=== PATIENT | male | born 1980 | race African-American/Black ===

== ENCOUNTER 2022-07-04 14:03 | Inpatient (IN) ==
[2022-07-04] MEDS ORDERED: MoRPHine SULFATE 4 MG/ML 1 ML CARP\\VIAL IV STA (14:35)
[2022-07-04] MEDS ORDERED: ONDANSETRON INJ 2 MG/ML 2 ML VIAL IV STA (14:35)
[2022-07-04] MEDS ORDERED: SODIUM CHLORIDE 0.9% 1000ML 1,000 ML IV ONE ×2 (14:35→15:16)
--- NOTE | 2022-07-04 14:58 | XRay Report ---
XR chest 1V portable HISTORY: 42 years-old Male Chest pain, nonspecific acute chest pain COMPARISON: None TECHNIQUE: AP view of the chest FINDINGS: Cardiomediastinal and hilar silhouettes are within normal limits. No pneumothorax, pleural effusion, airspace consolidation or pulmonary edema. Bones appear grossly intact. IMPRESSION: No acute process. ACT 112: Negative or not required by law. The above report was generated using voice recognition software. It may contain grammatical, syntax o r spelling errors. Electronically signed by: Hank Iverson M.D. 07/04/2022 2:56 PM
[2022-07-04] MEDS ORDERED: fentaNYL citrate PF 100 MCG/2 ML VIAL IV STA (15:12)
[2022-07-04] MEDS ORDERED: PROCHLORPERAZINE 2 ML IV ONE (15:16)
[2022-07-04] MEDS ORDERED: diphenhydrAMINE 50 MG/ML VIAL IV STA (15:16)
--- NOTE | 2022-07-04 15:16 | Emergency Department Note ---
Impression & Plan Intractable nausea and vomiting, Chest pain, Abdominal pain, acute, epigastric, Elevated lactic acid level ED Provider Note HISTORY OF PRESENT ILLNESS: Patient is a 42-year-old male presenting with chest pain and vomiting. 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 His provides history and reports that the patient was having episodes of nausea and vomiting yesterday and then developed chest pain today. Patient has a history of PEs and is on Eliquis daily. Locates the pain to the substernal region without radiation. Denies any significant shortness of breath. Denies any dysuria or hematuria. ROS: as above PHYSICAL EXAM: Constitutional: Patient appears in mild distress. Patient is actively vomiting on assessment. HENT: Head: Normocephalic and atraumatic. Eyes: EOMI, PERRL Mouth/Throat: Mucous membranes moist. Neck: Trachea midline. Neck supple. Cardiovascular: RRR, No murmurs, rubs or gallops. Intact distal pulses. Pulmonary/Chest: No respiratory distress. Breath sounds clear and equal bilaterally. No wheezes or rales. Abdominal: BS +. Abdomen soft, no rebound or guarding. Epigastric TTP. Musculoskeletal: No edema, tenderness or deformity noted. Skin: Warm and dry. No rash, erythema, pallor or cyanosis Psychiatric: Appropriate mood and affect for situation. Neurological: Alert and keenly responsive. CN II-XII grossly intact, moving all extremities equally and fully. MDM: - Vitals signs showed hypertension and bradycardia. - History obtained via patient and patient's family member. Patient presents with chest pain and vomiting. provides history given patient's active retching. Patient has been having nausea and vomiting since yesterday and then developed chest pain today. Locates the pain to the substernal region. Has a history of PEs and is on Eliquis. Locates the pain to the substernal and epigastric region. Denies any dysuria or hematuria. - Chronic conditions affecting care: Pulmonary embolism on Eliquis - Differential diagnoses include, but are not limited to: pancreatitis; ACS; pulmonary embolism; pneumonia - Order placed for continuous cardiac monitoring. At this time, monitor showed rate of 59 bpm with normal sinus rhythm, per my interpretation. - External medical records reviewed. EMS run sheet reviewed. Patient given 324 mg of aspirin and 3 nitro prior to arrival with EMS. - EKG reviewed by myself showed normal sinus rhythm. Rate 75 bpm. QTc 428. No acute ischemic changes, though poor baseline. Noted to have PVCs. - Laboratory workup interpreted by myself showed leukocytosis (WBC 11.73 - likely reactive from all the vomiting); stable electrolytes; normal troponin; elevated lactate (4.0); normal lipase - COVID/flu/RSV negative - Patient given 1L NS, 4 mg IV morphine and 4 mg IV zofran on arrival. On reassessment, he is still complaining of pain and actively vomiting. Given 50 mcg IV fentanyl, 1L NS, 10 mg IV compazine and 50 mg IV benadryl. - Patient reassessed and was feeling improved, but then complained of chest pain and started vomiting again. Given 0.4 mg PO SL nitro with improvement of pain. - UA negative for infection. Noted to have trace ketones, likely from dehydration from vomiting. - CXR negative for acute cardiopulmonary pathology. - CT abdomen/pelvis with IV contrast showed bladder wall thickening concerning for UTI. Noted to have chronic pancreatitis findings. Gallbladder unremarkable. - Patient reports that he has smoked marijuana in the past but nothing within the last 3 weeks. - Discussion was had with social work assistant about patient's case and need for admis edin. - Hospitalist, Dr. Calixto, consulted for admission. - Patient admitted to [facility] Hospitalist service for further evaluation and management. ASSESSMENT AND PLAN: Diagnosis: intractable nausea and vomiting; elevated lactic acid level; epigastric abdominal pain; chest pain Plan: admit Allergies Allergies Allergy/AdvReac Type Severity Reaction Status Date / Time amoxicillin Allergy Intermediate Hives Unverified 07/04/22 15:57 Home Meds Home Medications Medication Instructions Recorded Confirmed apixaban 5 mg tablet (Eliquis) 5 mg PO BID 07/04/22 07/04/22 nifedipine 30 mg tablet,extended 30 mg PO DAILY 07/04/22 07/04/22 release 24 hr ondansetron 4 mg disintegrating 4 mg PO TID PRN Nausea 07/04/22 07/04/22 tablet pantoprazole 40 mg tablet,delayed 40 mg PO DAILY 07/04/22 07/04/22 release Results & Data (ED) Vital Signs Vital Signs - 24 hr 07/04/22 14:19 07/04/22 14:24 07/04/22 15:13 Temperature 36.8 C Temperature Source Oral Pulse Rate 64 58 L Pulse Rate [Right Finger] 68 Pulse Rhythm [Right Finger] Regular Pulse Strength Normal Pulse Strength [Right Finger] Normal Respiratory Rate 20 22 Respiratory Effort / Characteristics Non-Labored Non-Labored Spontaneous Respiratory Depth Normal Normal Respiratory Pattern Regular Blood Pressure 171/96 H Blood Pressure [Right Arm] 175/78 H Blood Pressure Mean 121 Blood Pressure Mean [Right Arm] 110 Blood Pressure Position Sitting Blood Pressure Position [Right Arm] Lying Pulse Oximetry 94 97 Oxygen Delivery Method Room Air Room Air Sepsis Recent Fever Within 48 Hours No Sepsis New/Unexplained Change in Mental Status No Sepsis Action Taken by Nursing No Action Required 07/04/22 18:40 07/04/22 18:52 Temperature Temperature Source Pulse Rate 70 Pulse Rate [Right Finger] 89 Pulse Rhythm [Right Finger] Regular Pulse Strength Pulse Strength [Right Finger] Normal Respiratory Rate 19 Respiratory Effort / Characteristics Non-Labored Spontaneous Respiratory Depth Normal Respiratory Pattern Regular Blood Pressure Blood Pressure [Right Arm] 169/108 H Blood Pressure Mean Blood Pressure Mean [Right Arm] 128 Blood Pressure Position Blood Pressure Position [Right Arm] Lying Pulse Oximetry 99 Oxygen Delivery Method Room Air Sepsis Recent Fever Within 48 Hours Sepsis New/Unexplained Change in Mental Status Sepsis Action Taken by Nursing Laboratory Data 07/04/22 14:15 07/04/22 14:15 Lab Results 07/04/22 07/04/22 07/04/22 Range/Units 14:15 14:15 14:15 WBC 11.73 H (4.8-10.8) K/ul RBC 5.20 (4.70-6.10) M/uL Hgb 13.2 L (14.0-18.0) g/dl Hct 40.3 L (42.0-52.0) % MCV 77.5 L (80.0-100.0) fL MCH 25.4 (25.0-34.0) pg MCHC 32.8 (32.0-36.0) g/dL RDW Std Deviation 39.6 (36.4-46.3) fL RDW Coeff of Argenis 14.3 (11.5-14.5) % Plt Count 270 (130-400) K/uL MPV 11.0 (9.4-12.4) fL Immature Gran % (Auto) 0.3 % Neut % (Auto) 90.2 % Lymph % (Auto) 6.0 % [place] % (Auto) 3.4 % Eos % (Auto) 0.0 % Baso % (Auto) 0.1 % Neut # (Auto) 10.59 H (1.40-6.50) K/uL Lymph # (Auto) 0.70 L (1.2-3.4) K/uL [place] # (Auto) 0.40 (0.11-0.59) K/uL Eos # (Auto) 0.00 (0-0.50) K/uL Baso # (Auto) 0.01 (0-0.2) K/uL Immature Gran # (Auto) 0.03 (0.01-0.20) K/uL PT 10.4 (9.0-12.0) Seconds INR 1.0 (0.9-1.1) Sodium 142 (136-145) mmol/L Potassium 3.8 (3.5-5.1) mmol/L Chloride 106 (98-107) mmol/L Carbon Dioxide 25 (21-32) mmol/L Anion Gap 11 (3-11) BUN 10 (6-23) mg/dl Creatinine 1.04 (0.6-1.4) mg/dl Est Cr Clr Drug Dosing 130.0 ml/min Est GFR ( Amer) 103.6 ml/min Est GFR (Non-Af Amer) 89.4 ml/min BUN/Creatinine Ratio 9.6 L (10-20) Glucose 185 H (70-99(Fasting)) mg/dl Lactate (0.4-2.0) mmol/L Calcium 9.8 (8.5-10.1) mg/dl Total Bilirubin 0.9 (0.2-1.0) mg/dl AST 19 (13-39) U/L ALT 22 (7-52) U/L Alkaline Phosphatase 130 H (34-104) U/L Troponin I High Sens 11.4 (0-20) pg/ml Total Protein 8.3 (6.0-8.3) gm/dl Albumin 4.7 (3.4-5.0) gm/dl Globulin 3.6 (2.5-4.0) gm/dl Albumin/Globulin Ratio 1.3 (0.9-2) Lipase 27 (11-82) U/L Urine Color Urine Appearance (Clear) Urine pH (4.5-7.5) Ur Specific [place] (1.000-1.030) Urine Protein (Negative) Urine Glucose (UA) (Negative) Urine Ketones (Negative) Urine Blood (Negative) Urine Nitrite (Negative) Urine Bilirubin (Negative) Urine Urobilinogen (Negative) Ur Leukocyte Esterase (Negative) Urine WBC (Auto) (0-5) /hpf Urine RBC (Auto) (0-4) /hpf U Hyaline Cast (Auto) (0-5) /lpf U Epithel Cells (Auto) (0-5) /lpf Urine Bacteria (Auto) (Negative) Ur Renal Epithelial Cell Urine Mucus (None Prsent) SARS-CoV-2 (PCR) (Negative) Influenza Type A (PCR) (Neg) Influenza Type B (PCR) (Neg) RSV (RT-PCR) (Neg) 07/04/22 07/04/22 07/04/22 Range/Units 15:25 15:40 17:18 WBC (4.8-10.8) K/ul RBC (4.70-6.10) M/uL Hgb (14.0-18.0) g/dl Hct (42.0-52.0) % MCV (80.0-100.0) fL MCH (25.0-34.0) pg MCHC (32.0-36.0) g/dL RDW Std Deviation (36.4-46.3) fL RDW Coeff of Argenis (11.5-14.5) % Plt Count (130-400) K/uL MPV (9.4-12.4) fL Immature Gran % (Auto) % Neut % (Auto) % Lymph % (Auto) % [place] % (Auto) % Eos % (Auto) % Baso % (Auto) % Neut # (Auto) (1.40-6.50) K/uL Lymph # (Auto) (1.2-3.4) K/uL [place] # (Auto) (0.11-0.59) K/uL Eos # (Auto) (0-0.50) K/uL Baso # (Auto) (0-0.2) K/uL Immature Gran # (Auto) (0.01-0.20) K/uL PT (9.0-12.0) Seconds INR (0.9-1.1) Sodium (136-145) mmol/L Potassium (3.5-5.1) mmol/L Chloride (98-107) mmol/L Carbon Dioxide (21-32) mmol/L Anion Gap (3-11) BUN (6-23) mg/dl Creatinine (0.6-1.4) mg/dl Est Cr Clr Drug Dosing ml/min Est GFR ( Amer) ml/min Est GFR (Non-Af Amer) ml/min BUN/Creatinine Ratio (10-20) Glucose (70-99(Fasting)) mg/dl Lactate 4.0 H* 4.0 H* (0.4-2.0) mmol/L Calcium (8.5-10.1) mg/dl Total Bilirubin (0.2-1.0) mg/dl AST (13-39) U/L ALT (7-52) U/L Alkaline Phosphatase (34-104) U/L Troponin I High Sens (0-20) pg/ml Total Protein (6.0-8.3) gm/dl Albumin (3.4-5.0) gm/dl Globulin (2.5-4.0) gm/dl Albumin/Globulin Ratio (0.9-2) Lipase (11-82) U/L Urine Color Urine Appearance (Clear) Urine pH (4.5-7.5) Ur Specific [place] (1.000-1.030) Urine Protein (Negative) Urine Glucose (UA) (Negative) Urine Ketones (Negative) Urine Blood (Negative) Urine Nitrite (Negative) Urine Bilirubin (Negative) Urine Urobilinogen (Negative) Ur Leukocyte Esterase (Negative) Urine WBC (Auto) (0-5) /hpf Urine RBC (Auto) (0-4) /hpf U Hyaline Cast (Auto) (0-5) /lpf U Epithel Cells (Auto) (0-5) /lpf Urine Bacteria (Auto) (Negative) Ur Renal Epithelial Cell Urine Mucus (None Prsent) SARS-CoV-2 (PCR) NEGATIVE (Negative) Influenza Type A (PCR) Negative (Neg) Influenza Type B (PCR) Negative (Neg) RSV (RT-PCR) Negative (Neg) 07/04/22 Range/Units 17:25 WBC (4.8-10.8) K/ul RBC (4.70-6.10) M/uL Hgb (14.0-18.0) g/dl Hct (42.0-52.0) % MCV (80.0-100.0) fL MCH (25.0-34.0) pg MCHC (32.0-36.0) g/dL RDW Std Deviation (36.4-46.3) fL RDW Coeff of Argenis (11.5-14.5) % Plt Count (130-400) K/uL MPV (9.4-12.4) fL Immature Gran % (Auto) % Neut % (Auto) % Lymph % (Auto) % [place] % (Auto) % Eos % (Auto) % Baso % (Auto) % Neut # (Auto) (1.40-6.50) K/uL Lymph # (Auto) (1.2-3.4) K/uL [place] # (Auto) (0.11-0.59) K/uL Eos # (Auto) (0-0.50) K/uL Baso # (Auto) (0-0.2) K/uL Immature Gran # (Auto) (0.01-0.20) K/uL PT (9.0-12.0) Seconds INR (0.9-1.1) Sodium (136-145) mmol/L Potassium (3.5-5.1) mmol/L Chloride (98-107) mmol/L Carbon Dioxide (21-32) mmol/L Anion Gap (3-11) BUN (6-23) mg/dl Creatinine (0.6-1.4) mg/dl Est Cr Clr Drug Dosing ml/min Est GFR ( Amer) ml/min Est GFR (Non-Af Amer) ml/min BUN/Creatinine Ratio (10-20) Glucose (70-99(Fasting)) mg/dl Lactate (0.4-2.0) mmol/L Calcium (8.5-10.1) mg/dl Total Bilirubin (0.2-1.0) mg/dl AST (13-39) U/L ALT (7-52) U/L Alkaline Phosphatase (34-104) U/L Troponin I High Sens (0-20) pg/ml Total Protein (6.0-8.3) gm/dl Albumin (3.4-5.0) gm/dl Globulin (2.5-4.0) gm/dl Albumin/Globulin Ratio (0.9-2) Lipase (11-82) U/L Urine Color Yellow Urine Appearance Clear (Clear) Urine pH 6.0 (4.5-7.5) Ur Specific [place] 1.030 (1.000-1.030) Urine Protein 1+ H (Negative) Urine Glucose (UA) Trace H (Negative) Urine Ketones Trace H (Negative) Urine Blood Negative (Negative) Urine Nitrite Negative (Negative) Urine Bilirubin Negative (Negative) Urine Urobilinogen Negative (Negative) Ur Leukocyte Esterase Negative (Negative) Urine WBC (Auto) 1-5 (0-5) /hpf Urine RBC (Auto) 5-10 H (0-4) /hpf U Hyaline Cast (Auto) 5-10 H (0-5) /lpf U Epithel Cells (Auto) >30 H (0-5) /lpf Urine Bacteria (Auto) Negative (Negative) Ur Renal Epithelial Cell Not Reportable Urine Mucus Present A (None Prsent) SARS-CoV-2 (PCR) (Negative) Influenza Type A (PCR) (Neg) Influenza Type B (PCR) (Neg) RSV (RT-PCR) (Neg) Administered Medications Discontinued Medications Diphenhydramine HCl (Diphenhydramine 50 Mg/Ml Vial) 50 mg IV NOW STA Stop: 07/04/22 15:17 Last Admin: 07/04/22 15:35 Dose: 50 mg Documented By: RAMILA Fentanyl Citrate (Fentanyl Citrate 100 Mcg/2 Ml Vial) 50 mcg IV NOW STA Stop: 07/04/22 15:13 Last Admin: 07/04/22 15:19 Dose: 50 mcg Documented By: JOLLY Sodium Chloride (Nss 1000ml) 1,000 mls @ 999 mls/hr IV .Q1H1M ONE Stop: 07/04/22 15:35 Last Infusion: 07/04/22 16:21 Dose: 0 mls/hr Documented By: Admin: 07/04/22 14:50 Dose: 999 mls/hr Documented By: HARLAN Prochlorperazine (Compazine) 2 mls @ 1 mls/min IV ONE ONE Stop: 07/04/22 15:17 Last Admin: 07/04/22 15:26 Dose: 1 mls/min Documented By: JOLLY Sodium Chloride (Nss 1000ml) 1,000 mls @ 999 mls/hr IV .Q1H1M ONE Stop: 07/04/22 16:16 Last Infusion: 07/04/22 17:11 Dose: 0 mls/hr Documented By: Admin: 07/04/22 15:35 Dose: 999 mls/hr Documented By: RAMILA Ioversol (Optiray 350 100ml) 90 ml IV ONCE ONE Stop: 07/04/22 18:04 Last Admin: 07/04/22 18:03 Dose: 90 ml Documented By: MARK Morphine Sulfate (Morphine Sulfate 4 Mg/Ml 1 Ml Carp\Vial) 4 mg IV NOW STA Stop: 07/04/22 14:36 Last Admin: 07/04/22 14:50 Dose: 4 mg Documented By: HARLAN Nitroglycerin (Nitroglycerin Sl 0.4 Mg/Tab Tab) Confirm Administered Dose 0.4 mg .ROUTE .STK-MED ONE Stop: 07/04/22 17:37 Last Admin: 07/04/22 17:49 Dose: Not Given Documented By: JOLLY Nitroglycerin (Nitroglycerin Sl 0.4 Mg/Tab Tab) 0.4 mg SL NOW STA Stop: 07/04/22 17:40 Last Admin: 07/04/22 17:48 Dose: 0.4 mg Documented By: JOLLY Ondansetron HCl (Ondansetron Inj 2 Mg/Ml 2 Ml Vial) 4 mg IV NOW STA Stop: 07/04/22 14:36 Last Admin: 07/04/22 14:47 Dose: 4 mg Documented By: HARLAN Imaging Data Radiologist's Impression: Chest X-Ray 07/04/22 14:36 XR chest 1V portable HISTORY: 42 years-old Male Chest pain, nonspecific acute chest pain COMPARISON: None TECHNIQUE: AP view of the chest FINDINGS: Cardiomediastinal and hilar silhouettes are within normal limits. No pneumothorax, pleural effusion, airspace consolidation or pulmonary edema. Bones appear grossly intact. IMPRESSION: No acute process. ACT 112: Negative or not required by law. The above report was generated using voice recognition software. It may contain grammatical, syntax or spelling errors. Electronically signed by: Hank Iverson M.D. 07/04/2022 2:56 PM Abdomen/Pelvis CT 07/04/22 17:39 CT SCAN OF THE ABDOMEN AND PELVIS WITH IV CONTRAST CLINICAL HISTORY: Epigastric abdominal pain COMPARISON STUDY: No priors. TECHNIQUE: Following the IV administration of 90 cc of Optiray 350, CT scan of the abdomen and pelvis is performed from the lung bases to the proximal femora. Images are reviewed in the axial, sagittal, and coronal planes. IV contrast was administered without complication. A dose lowering technique was utilized adhering to the principles of ALARA. CT DOSE: 1218.98 mGy.cm FINDINGS: Lung bases: The heart is normal in size and without pericardial effusion. The lung bases are clear. Liver: The contrast-enhanced liver is enlarged, measuring 21.9 cm in length. Attenuation is slightly diminished suggesting mild steatosis. There is no intrahepatic biliary ductal dilatation. The hepatic veins and portal veins are patent. Gallbladder: Unremarkable. Spleen: Normal in size and attenuation. Pancreas: Scattered parenchymal calcifications suggest chronic pancreatitis. No acute inflammatory change is identified. Adrenal glands: Unremarkable. Kidneys: The contrast enhanced kidneys are normal in size and without hydronephrosis. The kidneys enhance symmetrically. Abdominal vasculature: The abdominal aorta is normal in course and caliber. A stent is present in the left iliac vein. The vessel appears patent. Bowel: There is no bowel obstruction. The appendix is well-visualized and normal. Peritoneum: There is no intraperitoneal free air or abdominal ascites. There is a fat-containing umbilical hernia. Lymphadenopathy: None. Pelvic viscera: The bladder is decompressed and appears circumferentially thick walled. The prostate and seminal vesicles unremarkable as visualized. Skeletal structures: No lytic or blastic lesions are seen. IMPRESSION: 1. The bladder wall appears circumferentially thickened. Correlate with clinical findings and urinalysis. 2. There are scattered pancreatic parenchymal calcifications, suggestive of chronic pancreatitis. There is no evidence of acute inflammation. Clinical and laboratory correlation will be required. 3. The liver is enlarged and mildly steatotic. 4. Additional findings as above. ACT 112: Negative or not required by law. Electronically signed by: Moises Strickland M.D. 07/04/2022 6:12 PM Discharge Plan Visit Data Chief Complaint: Chest Pain ED Provider: Nancy Rodriguez Discharge Problem: Intractable nausea and vomiting, Chest pain, Abdominal pain, acute, epigastric, Elevated lactic acid level Forms Stand Alone Forms: [facility] Prescriptions Prescriptions: No Action nifedipine 30 mg tablet extended release 24hr 30 mg PO DAILY pantoprazole 40 mg tablet,delayed release (DR/EC) 40 mg PO DAILY ondansetron 4 mg tablet,disintegrating 4 mg PO TID PRN (Reason: Nausea) Eliquis 5 mg tablet 5 mg PO BID Referrals Referrals: PCP,NO [Primary Care Provider] -
[2022-07-04 15:24] LABS: Hematocrit (blood only) 40.3 % (42.0-52.0); Hemoglobin 13.2 g/dl (14.0-18.0); Mean Corpuscular Hemoglobin 25.4 pg (25.0-34.0); Mean Corpuscular Hgb Conc 32.8 g/dL (32.0-36.0); Mean Corpuscular Volume 77.5 fL (80.0-100.0); Platelet Count 270 K/uL (130-400); RDW Coefficient of Variation 14.3 % (11.5-14.5); RDW Standard Deviation 39.6 fL (36.4-46.3); White Blood Count 11.73 K/ul (4.8-10.8)
[2022-07-04 15:40] LABS: Basophils # (auto) 0.01 K/uL (0-0.2); Basophils % (auto) 0.1 %; Immature Granulocytes # (auto) 0.03 K/uL (0.01-0.20); Immature Granulocytes % (auto) 0.3 %; Monocytes % (auto) 3.4 %; Neutrophils # (auto) 10.59 K/uL (1.40-6.50); Neutrophils % (auto) 90.2 %
[2022-07-04 15:46] LABS: Albumin Level 4.7 gm/dl (3.4-5.0); Bilirubin,Total 0.9 mg/dl (0.2-1.0); Calcium 9.8 mg/dl (8.5-10.1); Potassium 3.8 mmol/L (3.5-5.1)
--- NOTE | 2022-07-04 15:50 | Electrocardiogram Report ---
Test Reason : Blood Pressure : / mmHG Vent. Rate : 075 BPM Atrial Rate : 075 BPM P-R Int : 164 ms QRS Dur : 094 ms QT Int : 384 ms P-R-T Axes : 084 084 048 degrees QTc Int : 428 ms Poor data quality, interpretation may be adversely affected Sinus rhythm with marked sinus arrhythmia with occasional Premature ventricular complexes Nonspecific T wave abnormality Inferior leads Abnormal ECG No previous ECGs available Confirmed by Paras Brody ([id number]) on 07/04/2022 3:50:31 PM Referred By: Confirmed By:Paras Brody
[2022-07-04 15:52] LABS: Albumin Globulin Ratio 1.3 (0.9-2); BUN Creatinine Ratio 9.6 (10-20); Est GFR (African American) 103.6 ml/min; Est GFR (Non-African American) 89.4 ml/min; Globulin 3.6 gm/dl (2.5-4.0); Total Protein 8.3 gm/dl (6.0-8.3)
[2022-07-04 15:53] LABS: Prothrombin Time 10.4 Seconds (9.0-12.0)
[2022-07-04 15:54] LABS: Troponin I High Sensitivity 11.4 pg/ml (0-20)
[2022-07-04 16:41] LABS: Influenza A virus by PCR Negative (Neg); Influenza B virus by PCR Negative (Neg); RSV by PCR Negative (Neg); SARS CoV2 RNA(COVID-19) Ceph NEGATIVE (Negative)
[2022-07-04] MEDS ORDERED: NITROGLYCERIN SL 0.4 MG/TAB TAB ONE (17:36)
[2022-07-04] MEDS ORDERED: NITROGLYCERIN SL 0.4 MG/TAB TAB SL STA (17:39)
[2022-07-04 17:56] LABS: Appearance Urine Clear (Clear); Bacteria Urine Automated Negative (Negative); Bilirubin Urine Negative (Negative); Blood Urine Negative (Negative); Color Urine Yellow; Epithelial Cell Urine Auto >30 /lpf (0-5); Glucose Urine UA Trace (Negative); Ketones Urine Trace (Negative); Leukocyte Esterase Urine Negative (Negative); Nitrite Urine Negative (Negative); Protein Urine 1+ (Negative); Urobilinogen Urine Negative (Negative)
[2022-07-04] MEDS ORDERED: OPTIRAY 350 100ml IV ONE (18:03)
--- NOTE | 2022-07-04 18:14 | CT Scan Report ---
CT SCAN OF THE ABDOMEN AND PELVIS WITH IV CONTRAST CLINICAL HISTORY: Epigastric abdominal pain COMPARISON STUDY: No priors. TECHNIQUE: Following the IV administration of 90 cc of Optiray 350, CT scan of the abdomen and pelvi s is performed from the lung bases to the proximal femora. Images are reviewed in the axial, sagittal , and coronal planes. IV contrast was administered without complication. A dose lowering technique wa s utilized adhering to the principles of ALARA. CT DOSE: 1218.98 mGy.cm FINDINGS: Lung bases: The heart is normal in size and without pericardial effusion. The lung bases are clear. Liver: The contrast-enhanced liver is enlarged, measuring 21.9 cm in length. Attenuation is slightly diminished suggesting mild steatosis. There is no intrahepatic biliary ductal dilatation. The hepatic veins and portal veins are patent. Gallbladder: Unremarkable. Spleen: Normal in size and attenuation. Pancreas: Scattered parenchymal calcifications suggest chronic pancreatitis. No acute inflammatory ch pete is identified. Adrenal glands: Unremarkable. Kidneys: The contrast enhanced kidneys are normal in size and without hydronephrosis. The kidneys enh ance symmetrically. Abdominal vasculature: The abdominal aorta is normal in course and caliber. A stent is present in the left iliac vein. The vessel appears patent. Bowel: There is no bowel obstruction. The appendix is well-visualized and normal. Peritoneum: There is no intraperitoneal free air or abdominal ascites. There is a fat-containing umbi lical hernia. Lymphadenopathy: None. Pelvic viscera: The bladder is decompressed and appears circumferentially thick walled. The prostate and seminal vesicles unremarkable as visualized. Skeletal structures: No lytic or blastic lesions are seen. IMPRESSION: 1. The bladder wall appears circumferentially thickened. Correlate with clinical findings and urinaly sis. 2. There are scattered pancreatic parenchymal calcifications, suggestive of chronic pancreatitis. The re is no evidence of acute inflammation. Clinical and laboratory correlation will be required. 3. The liver is enlarged and mildly steatotic. 4. Additional findings as above. ACT 112: Negative or not required by law. Electronically signed by: Moises Strickland M.D. 07/04/2022 6:12 PM
[2022-07-04 18:15] LABS: Mucus Urine Present (None Prsent)
--- NOTE | 2022-07-04 22:45 | History and Physical Report ---
DATE OF ADMISSION: 07/04/2022 CHIEF COMPLAINT: Chest pain. HISTORY OF PRESENT ILLNESS: A 42-year-old male unassigned patinet. 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 He lives in [place], comes because of nausea and vomiting going on since yesterday and also developed chest pain in the middle of the chest, about 8_/10 in severity associated with some nausea as well as sweating. Denies any shortness of breath. No fevers, no headache, no dizziness. He says he has blurred vision in the mornings when he wakes up. Denies any earache, no runny nose, no sore throat, no cough, no abdominal pain. He says he is getting on and off blood in the stools. He has seen by GI and had colonoscopy and some polyps were taken out and he is supposed to follow up with GI again. Normal bladder movements. No swelling in the legs. The patient was diagnosed with history of DVT and PE 6 months ago, on Eliquis. At that time he was diagnosed with HTN. He has appointment with hem/onc to decide whether to continue the Eliquis or not. He is a warp trucker and he thinks it mostly happened because he is sitting all the time on the truck. Right now, he is trying to walk and use compression stockings while driving. Currently, resting comfortably and hemodynamically stable. ALLERGIES: AMOXICILLIN. PAST MEDICAL HISTORY: Hypertension, PE, GERD. PAST SURGICAL HISTORY: Colonoscopy. MEDICATIONS: Eliquis 5 mg p.o. b.i.d., nifedipine 30 mg p.o. daily, Zofran 4 mg p.o. t.i.d. p.r.n. nausea, Protonix 40 mg p.o. daily. FAMILY HISTORY: Mother, diabetes. Father has hypertension. Maternal grandmother had CHF. SOCIAL HISTORY: Smokes 2-4 cigarettes daily. Smokes marijuana, last smoked about 15 days ago. Denies alcohol. REVIEW OF SYSTEMS: As per HPI. Rest of review of systems is negative. PHYSICAL EXAMINATION: GENERAL: The patient is obese, not in acute distress. VITAL SIGNS: Temperature 36.8, pulse 86, respiratory rate 18, blood pressure 150/103, oxygen 96% on room air. HEENT: Pupils equal, round and reactive to light. Oral mucosa moist. NECK: No JVD. No neck masses. CARDIOVASCULAR: S1 and S2 heard. Regular rate and rhythm. No murmur, no gallop. RESPIRATORY SYSTEM: Normal AP diameter. No accessory muscle use. No wheezing, crackles. ABDOMEN: Soft, bowel sounds present, nontender, no distention. CENTRAL NERVOUS SYSTEM: Alert and oriented. Speech is clear. No facial droop. Obeys simple commands. Moves extremities. EXTREMITIES: No edema, no erythema. LABORATORY DATA: WBC 11.7, hemoglobin 13.2, hematocrit 40.3, platelets 270. Sodium 142, potassium 3.8, chloride 106, bicarbonate 25, BUN 10, creatinine 1.04, serum glucose 185. Lactate 4.4, calcium 9.8, total bilirubin 0.9, AST 19, ALT 22, alkaline phosphatase 130. Troponin I high sensitivity 1.4, lipase 27. Urinalysis, +1 protein. SARS-CoV-2 PCR negative. Influenza A and B PCR negative. RSV PCR negative. IMAGING DATA: CT abdomen and pelvis with IV contrast: Bladder wall appears circumferentially thickened, correlate with clinical findings and urinalysis. There are scattered pancreatic calcifications suggestive of chronic pancreatitis. There is no evidence of acute inflammation. Enlarged liver and mildly steatoticChest x-ray, no acute process. EKG: Sinus rhythm with marked sinus arrhythmia with occasional PVCs at a rate of 75, nonspecific ST-T wave abnormalities. ASSESSMENT AND PLAN: This is a 42-year-old male presents with chest pain. 1. Chest pain: Rule out acute coronary syndrome. Initial workup is negative. We will do serial cardiac enzymes, echocardiogram. Repeat EKG and n.p.o. after midnight. Consult cardiology. Monitor in the tele floor. Had again chest pain in the morning didnot improved after nitro and iv morphine. Ordered CTA chest. 2. History of pulmonary embolism and deep venous thrombosis, diagnosed 6 months ago. Taking Eliquis, takes it regularly except he did not take in the morning because of nausea. 3. Nausea, vomiting. We will place him on IV Zofran p.r.n., IV fluids. We will monitor. CT abdomen and pelvis shows chronic pancreatitis. Needs follow up. 4. Elevated lactic acidosis, possibly from nausea, vomiting. We will follow the repeat levels. 5. Hypertension: On nifedipine. 6. Gastroesophageal reflux disease: On Protonix. We will place him on IV Pepcid for now. 7. Deep venous thrombosis prophylaxis: On Eliquis. DISPOSITION: Closely monitor in the med tele. PT/OT prior to discharge. Social service to help with discharge planning. Level 1 full code. Job ID: [id number] [facility]
[2022-07-04] MEDS ORDERED: ACETAMINOPHEN 325 MG TAB PO PRN (22:55)
[2022-07-04] MEDS: SODIUM CHLORIDE 0.9% 1000ML 1,000 ML IV SCH (23:29)
[2022-07-04] MEDS: APIXABAN 5 MG TABLET PO SCH (23:29)
[2022-07-04] MEDS: FAMOTIDINE 20 MG in SYRINGE 3 ML IV SCH (23:29)
[2022-07-05] MEDS: ONDANSETRON INJ 2 MG/ML 2 ML VIAL IV PRN ×3 (04:24→20:14)
[2022-07-05] MEDS: NITROGLYCERIN SL 0.4 MG/TAB TAB SL PRN ×2 (05:52→08:59)
[2022-07-05] MEDS ORDERED: MoRPHine SULFATE 4 MG/ML 1 ML CARP\\VIAL IV STA (06:14)
[2022-07-05] MEDS: PROCHLORPERAZINE 5 MG in SYRINGE 4 ML IV PRN (06:15)
[2022-07-05] MEDS ORDERED: OPTIRAY 320 500ml IV ONE (07:31)
[2022-07-05] MEDS: FAMOTIDINE 20 MG in SYRINGE 3 ML IV SCH (07:48)
[2022-07-05] MEDS: APIXABAN 5 MG TABLET PO SCH ×2 (07:49→20:14)
[2022-07-05] MEDS: ASPIRIN 81 MG ECTAB PO SCH (07:49)
[2022-07-05] MEDS: SODIUM CHLORIDE 0.9% 1000ML 1,000 ML IV SCH ×2 (07:54→18:45)
--- NOTE | 2022-07-05 07:57 | CT Scan Report ---
CT angio chest dissec wo/w con CLINICAL HISTORY: chest pain severe TECHNIQUE: Multidetector row helical CT of the chest was performed before and after injection of IV c ontrast. Coronal and sagittal reformations were obtained. Automated dose lowering techniques and/or a djustment according to patient size were utilized for this exam. CT DOSE: 1462.22 mGy.cm Comparison: Comparison is made to CT abdomen pelvis 07/04/2022 FINDINGS: Lungs and pleura: Minimal atelectasis is seen in the lower lungs. No airspace opacity is seen. There is a 4 mm nodule in the left upper lobe (series 4 image 105). Heart and pericardium: Heart size is normal. No pericardial effusion. Vessels: No aortic dissection or intramural hematoma is seen. Mediastinum and merrill: Subcentimeter lymph nodes are seen. Chest wall and lower neck: Unremarkable. Abdomen: A hiatal hernia is seen. Bones: Mild degenerative changes in the thoracic spine. IMPRESSION: 1. No acute abnormality and in particular no evidence of acute aortic injury. 2. 4 mm nodule in the left upper lobe. According to Fleischner criteria, no follow-up is required in low risk patients, in high-risk patients, a 12 month follow-up CT can be optionally performed. ACT 112: Negative or not required by law. Electronically signed by: Mario Hernandez M.D. 07/05/2022 7:55 AM
[2022-07-05 08:35] LABS: Chol HDL Ratio 3.2 (0-5)
[2022-07-05 08:41] LABS: BUN Creatinine Ratio 11.2 (10-20); Calcium 9.4 mg/dl (8.5-10.1); Creatinine Clr Calc Pharmacy 135.5 ml/min; Est GFR (African American) 111.3 ml/min; Est GFR (Non-African American) 96.1 ml/min; Magnesium 1.8 mg/dl (1.7-2.4); Potassium 3.4 mmol/L (3.5-5.1)
[2022-07-05 08:44] LABS: Troponin I High Sensitivity 16.9 pg/ml (0-20)
[2022-07-05] MEDS ORDERED: NIFEdipine EXTENDED REL 30 MG TABCR PO SCH (09:00)
[2022-07-05] MEDS ORDERED: PANTOprazole 40 MG TAB PO SCH (09:00)
[2022-07-05 09:14] LABS: Basophils # (auto) 0.01 K/uL (0-0.2); Basophils % (auto) 0.1 %; Hematocrit (blood only) 40.5 % (42.0-52.0); Hemoglobin 13.5 g/dl (14.0-18.0); Immature Granulocytes # (auto) 0.05 K/uL (0.01-0.20); Immature Granulocytes % (auto) 0.4 %; Lymphocytes # (auto) 0.95 K/uL (1.2-3.4); Lymphocytes % (auto) 7.1 %; Mean Corpuscular Hemoglobin 25.7 pg (25.0-34.0); Mean Corpuscular Hgb Conc 33.3 g/dL (32.0-36.0); Mean Platelet Volume 10.5 fL (9.4-12.4); Monocytes # (auto) 0.74 K/uL (0.11-0.59); Monocytes % (auto) 5.6 %; Neutrophils # (auto) 11.57 K/uL (1.40-6.50); Neutrophils % (auto) 86.8 %; Platelet Count 236 K/uL (130-400); RDW Coefficient of Variation 14.6 % (11.5-14.5); Red Blood Count 5.26 M/uL (4.70-6.10); White Blood Count 13.32 K/ul (4.8-10.8)
[2022-07-05] MEDS ORDERED: POTASSIUM CHLORIDE CRTAB 20 MEQ TABCR PO ONE (09:15)
[2022-07-05] MEDS ORDERED: MoRPHine SULFATE 2 MG/ML CARP IV PRN ×2 (09:32→12:38)
--- NOTE | 2022-07-05 09:55 | Gastrointestinal Consultation ---
Date of Consultation July 05, 2022 Assessment & Plan (1) Intractable nausea and vomiting: (2) Chest pain: (3) Abdominal pain, acute, epigastric: Plan This is a 42 y/o male with h/o HTN, DVT/PE on Eliquis, tobacco, marijuana use, intermittent episodes of n/v/abd pain, hematochezia, admitted w/ chest pain, intractable n/v. We are consulted for pancreatitis however lipase is WNL and CT w/ findings of chronic pancreatitis, no mention of acute pancreatitis. Pt states he recently underwent EGD/colonoscopy approx 3 months ago in [place]; states colon polyps were found. On exam he appears uncomfortable w/ nausea, abd pain, and remains hypertensive with intermittent dry heaving. Unclear etiology for his intractable n/v/abd pain. He has been getting these symptoms episodically and has had evaluations at different locations throughout the country which are not available to be reviewed at this time. He was just scoped 3 months ago for similar indication. Diff dx includes gastric pathology such as gastritis, H. pylori, PUD, biliary etiology, chronic pancreatitis, or consider cannabis hyperemesis or even gastroparesis given elevated glucose. - Supportive care with IVF - Check urine tox screen, ETOH level - Daily PPI - IV Pepcid - IV antiemetics PRN - Cardiology consult to evaluate his chest pain - Obtain old endoscopy/PCP records to review - Avoid ETOH, recommend avoiding tobacco and marijuana use - Unclear if he would benefit from repeat scope at this time - Consider OP EUS to evaluate his chronic pancreatitis findings on imaging Thank you for allowing us to participate in the care of this patient. Please call with any acute changes, questions or concerns. Please see addendum below with additional recommendation from my supervising physician. Supervising Physician Co-Signing Physician Notes I personally saw and evaluated the patiana on 07/05/2022 with Sydni Seay PA-C and agree with her findings and plan of care. 42 y/o M with history of marijuana use, multiple recurrent attacks of acute pancreatitis (from sludge per ) now with chronic pancreatitis, ? alcohol use, hx of DVT/PE on Eliquis admitted with nausea/vomiting and epigastric abdominal pain. utox + for THC. reports they have been to many hospitals for same symptoms and he has had recurrent episodes of these symptoms over the past 2 years. 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 Originially from [place]. Physical exam: writhing in pain in bed, diffuse abdominal tenderness but it is distractible on exam, non-distended. Etiology of his N/V is likely due to cannabis hyperemesis syndrome given marijuana use and cyclical nature of attacks. He had an EGD in [place] 3 months ago that was normal per other than mild gastritis and no ulcers found. No benefit to repeating EGD at this time as he has the same symptoms but will get OSH EGD report for review. I am not sure the etiology of his abdominal pain but it is distractible. CT here with fatty liver and chronic pancreatitis but no acute findings. They request that only dilaudid works for his pain. He has been to multiple hospitals across the [place] the past year without etiology other than his reports they found a PE when he had these symptoms. Continue PPI BID, scheduled anti-emetics, limit use of narcotic pain medications. Complete cessation of all marijuana moving forward. Consider HIDA scan to evaluate for gallbladder etiology of his abdominal pain. 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 Ena Messer, Gastroenterology and Hepatology History of Present Illness Reason for Consultation: Pancreatitis Requesting Physician: Dr. 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 On arrival lipase 33, LFTs WNL except for ALP of 130, HGB 13.5, WBC 13.3, BUN 1, Cr 0.98, Na 140, K 3.4, Glucose 160. Elevated lactate of 4 which has since resolved w/ IV hydration. CXR, chest CTA and CTAP nonacute, mention of enlarged and mildly steatotic liver, findings suggestive of chronic pancreatitis, no mention of acute pancreatitis. EKG w/ NSR, normal troponin. He is hypertensive and that is being managed by primary team. Cardiology consulted to r/o ACS. He tells me he has these symptoms recurrently on a somewhat cyclical basis several times a year. Symptoms can last several days; then in between bouts - he is symptoms free w/ no abd pain, nausea, vomiting. In general he has a good appetite. He states he has been hospitalized in various states throughout the for this but doesn't have records with him. Often a hot shower improves his symptoms. He has intermittent hematochezia on a chronic basis and had seen GI - had what sounds like EGD and colonoscopy about 3 months ago in [place], [place] where he lives; he states he had polyps but no other details. Doesn't think he's ever had EUS. Unclear if he's ever had pancreatitis. No prior records are currently in his chart to review. Pt ROS/exam limited by pt frequently dry heaving. In general follows w/ PCP in [place] for his HTN. Admits to smoking cigarettes and marijuana, last use of marijuana was 2 weeks ago. States he drinks ETOH on occasion but details not given.; last drank last month. Last BM was 2 days ago; brown, no melena, hematochezia. Denies hematemesis, jaundice, fever, chills, SOB. He was rx'd pantoprazole as an OP but not clear of the indication or if he is taking this. Denies history of abd surgery. Allergies Allergy/AdvReac Type Severity Reaction Status Date / Time amoxicillin Allergy Intermediate Hives Unverified 07/04/22 15:57 Home Medications Medication Instructions Recorded Confirmed Type apixaban 5 mg tablet (Eliquis) 5 mg PO BID 07/04/22 07/04/22 History nifedipine 30 mg tablet,extended 30 mg PO DAILY 07/04/22 07/04/22 History release 24 hr ondansetron 4 mg disintegrating 4 mg PO TID PRN Nausea 07/04/22 07/04/22 History tablet pantoprazole 40 mg tablet,delayed 40 mg PO DAILY 07/04/22 07/04/22 History release Patient History Social History Smoking Status: Current every day smoker Cigarettes Per Day: 3; Second Hand Exposure: No; Do You Dip or Chew Tobacco: No; Tobacco Cessation Education Requested by Patient: No Hx Alcohol Use: Yes Alcohol type: beer Hx Substance Use: No Preferred Language: British Communication Ability: Effective Manager City Required: No Beliefs That Will Affect Care: None Current Living Situation: Spouse Other Information That Helps Us Care for You: No Feels Safe at Home: Yes Safety Concerns: Feels Safe At This Time Assistive Devices: None Review of Systems Review of Systems: All systems reviewed & are unremarkable except as noted in HPI & below Physical Exam Constitutional: well developed, well nourished and + acute distress with waves of nausea/abd pain pt having dry heaving and appears uncomfortable Eyes: Sclera anicteric, no conjunctival injection ENMT: moist mucous membranes, no pallor Neck: trachea midline supple Respiratory: normal respiratory effort, lungs clear to auscultation Cardiovascular: RRR, no murmur, no edema Gastrointestinal (Abdomen): Inspection/Auscultation: abdomen not distended (+ BS x 4 quadrants, + epigastric tenderness, no rebound, guarding) Skin: no rashes, warm and dry Neurologic: alert and oriented x 3, no obvious focal neuro deficit Psychiatric: normal mood and affect Results & Data ([facility]) Vital Signs (Past 12 Hours) Vital Signs Temp Pulse Pulse Resp BP BP Pulse Ox 07/05/22 09:08 69 20 176/96 H 97 07/05/22 09:00 36.9 C 64 18 192/99 H 98 07/05/22 07:48 37.0 C 59 L 18 184/81 H 98 07/05/22 07:12 65 07/05/22 04:00 36.9 C 79 18 163/77 H 98 07/04/22 23:58 84 07/04/22 22:58 07/04/22 22:58 36.8 C 75 16 120/73 96 O2 Del Method 07/05/22 09:08 Room Air 07/05/22 09:00 Room Air 07/05/22 07:48 Room Air 07/05/22 07:12 07/05/22 04:00 Room Air 07/04/22 23:58 07/04/22 22:58 Room Air 07/04/22 22:58 Room Air Laboratory Results 07/05/22 07/05/22 07/05/22 Range/Units 08:41 08:11 07:55 WBC 13.32 H (4.8-10.8) K/ul RBC 5.26 (4.70-6.10) M/uL Hgb 13.5 L (14.0-18.0) g/dl Hct 40.5 L (42.0-52.0) % MCV 77.0 L (80.0-100.0) fL MCH 25.7 (25.0-34.0) pg MCHC 33.3 (32.0-36.0) g/dL RDW Std Deviation 40.0 (36.4-46.3) fL RDW Coeff of Argenis 14.6 H (11.5-14.5) % Plt Count 236 (130-400) K/uL MPV 10.5 (9.4-12.4) fL Immature Gran % (Auto) 0.4 % Neut % (Auto) 86.8 % Lymph % (Auto) 7.1 % Pike % (Auto) 5.6 % Eos % (Auto) 0.0 % Baso % (Auto) 0.1 % Neut # (Auto) 11.57 H (1.40-6.50) K/uL Lymph # (Auto) 0.95 L (1.2-3.4) K/uL Pike # (Auto) 0.74 H (0.11-0.59) K/uL Eos # (Auto) 0.00 (0-0.50) K/uL Baso # (Auto) 0.01 (0-0.2) K/uL Immature Gran # (Auto) 0.05 (0.01-0.20) K/uL Absolute Nucleated RBC Nucleated RBC % (auto) Neutrophils % (Manual) Band Neutrophils % Lymphocytes % (Manual) Prolymphocyte % Reactive Lymphs % (Man) Monocytes % (Manual) Eosinophils % (Manual) Basophils % (Manual) Metamyelocytes % (Man) Myelocytes % (Man) Promyelocytes % (Man) Blast Cells % (Manual) Plasma Cell % (Manual) Other Cells % Nucleated RBC % Neutrophils # (Manual) Band Neutrophils # Total Absolute Neuts Lymphocytes # (Manual) Prolymphocyte # Reactive Lymphs # Total Abs Lymphocytes Monocytes # (Manual) Eosinophils # (Manual) Basophils # (Manual) Metamyelocytes # (Man) Myelocytes # (Manual) Promyelocytes # (Man) Blast Cells # (Man) Plasma Cell # (Manual) Other Cells # Nucleated RBCs # (Man) Hypersegmented Neuts Hyposegmented Neuts Hypogranular Neuts Large Granular Lymphs # Lrg Granular Lymphs Hairy Cells Smudge Cells Toxic Granulation Toxic Vacuolation Dohle Bodies Javier Rods Platelet Estimate Hypogranular Platelets Giant Platelets Platelet Satelliting RBC Morphology Polychromasia Hypochromasia Poikilocytosis Basophilic Stippling Anisocytosis Microcytosis Macrocytosis Spherocytes Pappenheimer Bodies Sickle Cells Target Cells Tear Drop Cells Ovalocytes Stomatocytes [place] Bodies Echinocytes Acanthocytes (Spur) Rouleaux RBC Agglutinates Schistocytes Sezary Cell PT (9.0-12.0) Seconds INR (0.9-1.1) Sodium (136-145) mmol/L Potassium (3.5-5.1) mmol/L Chloride (98-107) mmol/L Carbon Dioxide (21-32) mmol/L Anion Gap (3-11) BUN (6-23) mg/dl Creatinine (0.6-1.4) mg/dl Est Cr Clr Drug Dosing ml/min Est GFR ( Amer) ml/min Est GFR (Non-Af Amer) ml/min BUN/Creatinine Ratio (10-20) Glucose (70-99(Fasting)) mg/dl Lactate 1.6 Cancelled (0.4-2.0) mmol/L Calcium (8.5-10.1) mg/dl Magnesium (1.7-2.4) mg/dl Total Bilirubin (0.2-1.0) mg/dl AST (13-39) U/L ALT (7-52) U/L Alkaline Phosphatase (34-104) U/L Troponin I High Sens (0-20) pg/ml Total Protein (6.0-8.3) gm/dl Albumin (3.4-5.0) gm/dl Globulin (2.5-4.0) gm/dl Albumin/Globulin Ratio (0.9-2) Triglycerides (0-150) mg/dl Cholesterol (0-200) mg/dl LDL Cholesterol, Calc mg/dl VLDL Cholesterol, Calc (0-30) mg/dl HDL Cholesterol mg/dl Cholesterol/HDL Ratio (0-5) Lipase (11-82) U/L Urine Color Urine Appearance (Clear) Urine pH (4.5-7.5) Ur Specific [place] (1.000-1.030) Urine Protein (Negative) Urine Glucose (UA) (Negative) Urine Ketones (Negative) Urine Blood (Negative) Urine Nitrite (Negative) Urine Bilirubin (Negative) Urine Urobilinogen (Negative) Ur Leukocyte Esterase (Negative) Urine WBC (Auto) (0-5) /hpf Urine RBC (Auto) (0-4) /hpf U Hyaline Cast (Auto) (0-5) /lpf U Epithel Cells (Auto) (0-5) /lpf Urine Bacteria (Auto) (Negative) Ur Renal Epithelial Cell Urine Mucus (None Prsent) SARS-CoV-2 (PCR) (Negative) Influenza Type A (PCR) (Neg) Influenza Type B (PCR) (Neg) RSV (RT-PCR) (Neg) Blood Parasites ID 07/05/22 07/05/22 07/05/22 Range/Units 07:53 07:53 07:53 WBC Cancelled (4.8-10.8) K/ul RBC Cancelled (4.70-6.10) M/uL Hgb Cancelled (14.0-18.0) g/dl Hct Cancelled (42.0-52.0) % MCV Cancelled (80.0-100.0) fL MCH Cancelled (25.0-34.0) pg MCHC Cancelled (32.0-36.0) g/dL RDW Std Deviation Cancelled (36.4-46.3) fL RDW Coeff of Argenis Cancelled (11.5-14.5) % Plt Count Cancelled (130-400) K/uL MPV Cancelled (9.4-12.4) fL Immature Gran % (Auto) Cancelled % Neut % (Auto) Cancelled % Lymph % (Auto) Cancelled % Pike % (Auto) Cancelled % Eos % (Auto) Cancelled % Baso % (Auto) Cancelled % Neut # (Auto) Cancelled (1.40-6.50) K/uL Lymph # (Auto) Cancelled (1.2-3.4) K/uL Pike # (Auto) Cancelled (0.11-0.59) K/uL Eos # (Auto) Cancelled (0-0.50) K/uL Baso # (Auto) Cancelled (0-0.2) K/uL Immature Gran # (Auto) Cancelled (0.01-0.20) K/uL Absolute Nucleated RBC Cancelled Nucleated RBC % (auto) Cancelled Neutrophils % (Manual) Cancelled Band Neutrophils % Cancelled Lymphocytes % (Manual) Cancelled Prolymphocyte % Cancelled Reactive Lymphs % (Man) Cancelled Monocytes % (Manual) Cancelled Eosinophils % (Manual) Cancelled Basophils % (Manual) Cancelled Metamyelocytes % (Man) Cancelled Myelocytes % (Man) Cancelled Promyelocytes % (Man) Cancelled Blast Cells % (Manual) Cancelled Plasma Cell % (Manual) Cancelled Other Cells % Cancelled Nucleated RBC % Cancelled Neutrophils # (Manual) Cancelled Band Neutrophils # Cancelled Total Absolute Neuts Cancelled Lymphocytes # (Manual) Cancelled Prolymphocyte # Cancelled Reactive Lymphs # Cancelled Total Abs Lymphocytes Cancelled Monocytes # (Manual) Cancelled Eosinophils # (Manual) Cancelled Basophils # (Manual) Cancelled Metamyelocytes # (Man) Cancelled Myelocytes # (Manual) Cancelled Promyelocytes # (Man) Cancelled Blast Cells # (Man) Cancelled Plasma Cell # (Manual) Cancelled Other Cells # Cancelled Nucleated RBCs # (Man) Cancelled Hypersegmented Neuts Cancelled Hyposegmented Neuts Cancelled Hypogranular Neuts Cancelled Large Granular Lymphs Cancelled # Lrg Granular Lymphs Cancelled Hairy Cells Cancelled Smudge Cells Cancelled Toxic Granulation Cancelled Toxic Vacuolation Cancelled Dohle Bodies Cancelled Javier Rods Cancelled Platelet Estimate Cancelled Hypogranular Platelets Cancelled Giant Platelets Cancelled Platelet Satelliting Cancelled RBC Morphology Cancelled Polychromasia Cancelled Hypochromasia Cancelled Poikilocytosis Cancelled Basophilic Stippling Cancelled Anisocytosis Cancelled Microcytosis Cancelled Macrocytosis Cancelled Spherocytes Cancelled Pappenheimer Bodies Cancelled Sickle Cells Cancelled Target Cells Cancelled Tear Drop Cells Cancelled Ovalocytes Cancelled Stomatocytes Cancelled [place] Bodies Cancelled Echinocytes Cancelled Acanthocytes (Spur) Cancelled Rouleaux Cancelled RBC Agglutinates Cancelled Schistocytes Cancelled Sezary Cell Cancelled PT (9.0-12.0) Seconds INR (0.9-1.1) Sodium 140 (136-145) mmol/L Potassium 3.4 L (3.5-5.1) mmol/L Chloride 106 (98-107) mmol/L Carbon Dioxide 27 (21-32) mmol/L Anion Gap 7 (3-11) BUN 11 (6-23) mg/dl Creatinine 0.98 (0.6-1.4) mg/dl Est Cr Clr Drug Dosing 135.5 ml/min Est GFR ( Amer) 111.3 ml/min Est GFR (Non-Af Amer) 96.1 ml/min BUN/Creatinine Ratio 11.2 (10-20) Glucose 160 H (70-99(Fasting)) mg/dl Lactate (0.4-2.0) mmol/L Calcium 9.4 (8.5-10.1) mg/dl Magnesium 1.8 (1.7-2.4) mg/dl Total Bilirubin (0.2-1.0) mg/dl AST (13-39) U/L ALT (7-52) U/L Alkaline Phosphatase (34-104) U/L Troponin I High Sens 16.9 D (0-20) pg/ml Total Protein (6.0-8.3) gm/dl Albumin (3.4-5.0) gm/dl Globulin (2.5-4.0) gm/dl Albumin/Globulin Ratio (0.9-2) Triglycerides 67 (0-150) mg/dl Cholesterol 156 (0-200) mg/dl LDL Cholesterol, Calc 94 mg/dl VLDL Cholesterol, Calc 13 (0-30) mg/dl HDL Cholesterol 49 mg/dl Cholesterol/HDL Ratio 3.2 (0-5) Lipase (11-82) U/L Urine Color Urine Appearance (Clear) Urine pH (4.5-7.5) Ur Specific [place] (1.000-1.030) Urine Protein (Negative) Urine Glucose (UA) (Negative) Urine Ketones (Negative) Urine Blood (Negative) Urine Nitrite (Negative) Urine Bilirubin (Negative) Urine Urobilinogen (Negative) Ur Leukocyte Esterase (Negative) Urine WBC (Auto) (0-5) /hpf Urine RBC (Auto) (0-4) /hpf U Hyaline Cast (Auto) (0-5) /lpf U Epithel Cells (Auto) (0-5) /lpf Urine Bacteria (Auto) (Negative) Ur Renal Epithelial Cell Urine Mucus (None Prsent) SARS-CoV-2 (PCR) (Negative) Influenza Type A (PCR) (Neg) Influenza Type B (PCR) (Neg) RSV (RT-PCR) (Neg) Blood Parasites ID Cancelled [id number]/[id number] 07/04/22 Range/Units 17:25 17:18 15:40 WBC (4.8-10.8) K/ul RBC (4.70-6.10) M/uL Hgb (14.0-18.0) g/dl Hct (42.0-52.0) % MCV (80.0-100.0) fL MCH (25.0-34.0) pg MCHC (32.0-36.0) g/dL RDW Std Deviation (36.4-46.3) fL RDW Coeff of Argenis (11.5-14.5) % Plt Count (130-400) K/uL MPV (9.4-12.4) fL Immature Gran % (Auto) % Neut % (Auto) % Lymph % (Auto) % Pike % (Auto) % Eos % (Auto) % Baso % (Auto) % Neut # (Auto) (1.40-6.50) K/uL Lymph # (Auto) (1.2-3.4) K/uL Pike # (Auto) (0.11-0.59) K/uL Eos # (Auto) (0-0.50) K/uL Baso # (Auto) (0-0.2) K/uL Immature Gran # (Auto) (0.01-0.20) K/uL Absolute Nucleated RBC Nucleated RBC % (auto) Neutrophils % (Manual) Band Neutrophils % Lymphocytes % (Manual) Prolymphocyte % Reactive Lymphs % (Man) Monocytes % (Manual) Eosinophils % (Manual) Basophils % (Manual) Metamyelocytes % (Man) Myelocytes % (Man) Promyelocytes % (Man) Blast Cells % (Manual) Plasma Cell % (Manual) Other Cells % Nucleated RBC % Neutrophils # (Manual) Band Neutrophils # Total Absolute Neuts Lymphocytes # (Manual) Prolymphocyte # Reactive Lymphs # Total Abs Lymphocytes Monocytes # (Manual) Eosinophils # (Manual) Basophils # (Manual) Metamyelocytes # (Man) Myelocytes # (Manual) Promyelocytes # (Man) Blast Cells # (Man) Plasma Cell # (Manual) Other Cells # Nucleated RBCs # (Man) Hypersegmented Neuts Hyposegmented Neuts Hypogranular Neuts Large Granular Lymphs # Lrg Granular Lymphs Hairy Cells Smudge Cells Toxic Granulation Toxic Vacuolation Dohle Bodies Javier Rods Platelet Estimate Hypogranular Platelets Giant Platelets Platelet Satelliting RBC Morphology Polychromasia Hypochromasia Poikilocytosis Basophilic Stippling Anisocytosis Microcytosis Macrocytosis Spherocytes Pappenheimer Bodies Sickle Cells Target Cells Tear Drop Cells Ovalocytes Stomatocytes [place] Bodies Echinocytes Acanthocytes (Spur) Rouleaux RBC Agglutinates Schistocytes Sezary Cell PT (9.0-12.0) Seconds INR (0.9-1.1) Sodium (136-145) mmol/L Potassium (3.5-5.1) mmol/L Chloride (98-107) mmol/L Carbon Dioxide (21-32) mmol/L Anion Gap (3-11) BUN (6-23) mg/dl Creatinine (0.6-1.4) mg/dl Est Cr Clr Drug Dosing ml/min Est GFR ( Amer) ml/min Est GFR (Non-Af Amer) ml/min BUN/Creatinine Ratio (10-20) Glucose (70-99(Fasting)) mg/dl Lactate 4.0 H* (0.4-2.0) mmol/L Calcium (8.5-10.1) mg/dl Magnesium (1.7-2.4) mg/dl Total Bilirubin (0.2-1.0) mg/dl AST (13-39) U/L ALT (7-52) U/L Alkaline Phosphatase (34-104) U/L Troponin I High Sens (0-20) pg/ml Total Protein (6.0-8.3) gm/dl Albumin (3.4-5.0) gm/dl Globulin (2.5-4.0) gm/dl Albumin/Globulin Ratio (0.9-2) Triglycerides (0-150) mg/dl Cholesterol (0-200) mg/dl LDL Cholesterol, Calc mg/dl VLDL Cholesterol, Calc (0-30) mg/dl HDL Cholesterol mg/dl Cholesterol/HDL Ratio (0-5) Lipase (11-82) U/L Urine Color Yellow Urine Appearance Clear (Clear) Urine pH 6.0 (4.5-7.5) Ur Specific [place] 1.030 (1.000-1.030) Urine Protein 1+ H (Negative) Urine Glucose (UA) Trace H (Negative) Urine Ketones Trace H (Negative) Urine Blood Negative (Negative) Urine Nitrite Negative (Negative) Urine Bilirubin Negative (Negative) Urine Urobilinogen Negative (Negative) Ur Leukocyte Esterase Negative (Negative) Urine WBC (Auto) 1-5 (0-5) /hpf Urine RBC (Auto) 5-10 H (0-4) /hpf U Hyaline Cast (Auto) 5-10 H (0-5) /lpf U Epithel Cells (Auto) >30 H (0-5) /lpf Urine Bacteria (Auto) Negative (Negative) Ur Renal Epithelial Cell Not Reportable Urine Mucus Present A (None Prsent) SARS-CoV-2 (PCR) NEGATIVE (Negative) Influenza Type A (PCR) Negative (Neg) Influenza Type B (PCR) Negative (Neg) RSV (RT-PCR) Negative (Neg) Blood Parasites ID 07/04/22 07/04/22 07/04/22 Range/Units 15:25 14:15 14:15 WBC (4.8-10.8) K/ul RBC (4.70-6.10) M/uL Hgb (14.0-18.0) g/dl Hct (42.0-52.0) % MCV (80.0-100.0) fL MCH (25.0-34.0) pg MCHC (32.0-36.0) g/dL RDW Std Deviation (36.4-46.3) fL RDW Coeff of Argenis (11.5-14.5) % Plt Count (130-400) K/uL MPV (9.4-12.4) fL Immature Gran % (Auto) % Neut % (Auto) % Lymph % (Auto) % Pike % (Auto) % Eos % (Auto) % Baso % (Auto) % Neut # (Auto) (1.40-6.50) K/uL Lymph # (Auto) (1.2-3.4) K/uL Pike # (Auto) (0.11-0.59) K/uL Eos # (Auto) (0-0.50) K/uL Baso # (Auto) (0-0.2) K/uL Immature Gran # (Auto) (0.01-0.20) K/uL Absolute Nucleated RBC Nucleated RBC % (auto) Neutrophils % (Manual) Band Neutrophils % Lymphocytes % (Manual) Prolymphocyte % Reactive Lymphs % (Man) Monocytes % (Manual) Eosinophils % (Manual) Basophils % (Manual) Metamyelocytes % (Man) Myelocytes % (Man) Promyelocytes % (Man) Blast Cells % (Manual) Plasma Cell % (Manual) Other Cells % Nucleated RBC % Neutrophils # (Manual) Band Neutrophils # Total Absolute Neuts Lymphocytes # (Manual) Prolymphocyte # Reactive Lymphs # Total Abs Lymphocytes Monocytes # (Manual) Eosinophils # (Manual) Basophils # (Manual) Metamyelocytes # (Man) Myelocytes # (Manual) Promyelocytes # (Man) Blast Cells # (Man) Plasma Cell # (Manual) Other Cells # Nucleated RBCs # (Man) Hypersegmented Neuts Hyposegmented Neuts Hypogranular Neuts Large Granular Lymphs # Lrg Granular Lymphs Hairy Cells Smudge Cells Toxic Granulation Toxic Vacuolation Dohle Bodies Javier Rods Platelet Estimate Hypogranular Platelets Giant Platelets Platelet Satelliting RBC Morphology Polychromasia Hypochromasia Poikilocytosis Basophilic Stippling Anisocytosis Microcytosis Macrocytosis Spherocytes Pappenheimer Bodies Sickle Cells Target Cells Tear Drop Cells Ovalocytes Stomatocytes [place] Bodies Echinocytes Acanthocytes (Spur) Rouleaux RBC Agglutinates Schistocytes Sezary Cell PT 10.4 (9.0-12.0) Seconds INR 1.0 (0.9-1.1) Sodium 142 (136-145) mmol/L Potassium 3.8 (3.5-5.1) mmol/L Chloride 106 (98-107) mmol/L Carbon Dioxide 25 (21-32) mmol/L Anion Gap 11 (3-11) BUN 10 (6-23) mg/dl Creatinine 1.04 (0.6-1.4) mg/dl Est Cr Clr Drug Dosing 130.0 ml/min Est GFR ( Amer) 103.6 ml/min Est GFR (Non-Af Amer) 89.4 ml/min BUN/Creatinine Ratio 9.6 L (10-20) Glucose 185 H (70-99(Fasting)) mg/dl Lactate 4.0 H* (0.4-2.0) mmol/L Calcium 9.8 (8.5-10.1) mg/dl Magnesium (1.7-2.4) mg/dl Total Bilirubin 0.9 (0.2-1.0) mg/dl AST 19 (13-39) U/L ALT 22 (7-52) U/L Alkaline Phosphatase 130 H (34-104) U/L Troponin I High Sens 11.4 (0-20) pg/ml Total Protein 8.3 (6.0-8.3) gm/dl Albumin 4.7 (3.4-5.0) gm/dl Globulin 3.6 (2.5-4.0) gm/dl Albumin/Globulin Ratio 1.3 (0.9-2) Triglycerides (0-150) mg/dl Cholesterol (0-200) mg/dl LDL Cholesterol, Calc mg/dl VLDL Cholesterol, Calc (0-30) mg/dl HDL Cholesterol mg/dl Cholesterol/HDL Ratio (0-5) Lipase 27 (11-82) U/L Urine Color Urine Appearance (Clear) Urine pH (4.5-7.5) Ur Specific [place] (1.000-1.030) Urine Protein (Negative) Urine Glucose (UA) (Negative) Urine Ketones (Negative) Urine Blood (Negative) Urine Nitrite (Negative) Urine Bilirubin (Negative) Urine Urobilinogen (Negative) Ur Leukocyte Esterase (Negative) Urine WBC (Auto) (0-5) /hpf Urine RBC (Auto) (0-4) /hpf U Hyaline Cast (Auto) (0-5) /lpf U Epithel Cells (Auto) (0-5) /lpf Urine Bacteria (Auto) (Negative) Ur Renal Epithelial Cell Urine Mucus (None Prsent) SARS-CoV-2 (PCR) (Negative) Influenza Type A (PCR) (Neg) Influenza Type B (PCR) (Neg) RSV (RT-PCR) (Neg) Blood Parasites ID 07/04/22 Range/Units 14:15 WBC 11.73 H (4.8-10.8) K/ul RBC 5.20 (4.70-6.10) M/uL Hgb 13.2 L (14.0-18.0) g/dl Hct 40.3 L (42.0-52.0) % MCV 77.5 L (80.0-100.0) fL MCH 25.4 (25.0-34.0) pg MCHC 32.8 (32.0-36.0) g/dL RDW Std Deviation 39.6 (36.4-46.3) fL RDW Coeff of Argenis 14.3 (11.5-14.5) % Plt Count 270 (130-400) K/uL MPV 11.0 (9.4-12.4) fL Immature Gran % (Auto) 0.3 % Neut % (Auto) 90.2 % Lymph % (Auto) 6.0 % Pike % (Auto) 3.4 % Eos % (Auto) 0.0 % Baso % (Auto) 0.1 % Neut # (Auto) 10.59 H (1.40-6.50) K/uL Lymph # (Auto) 0.70 L (1.2-3.4) K/uL Pike # (Auto) 0.40 (0.11-0.59) K/uL Eos # (Auto) 0.00 (0-0.50) K/uL Baso # (Auto) 0.01 (0-0.2) K/uL Immature Gran # (Auto) 0.03 (0.01-0.20) K/uL Absolute Nucleated RBC Nucleated RBC % (auto) Neutrophils % (Manual) Band Neutrophils % Lymphocytes % (Manual) Prolymphocyte % Reactive Lymphs % (Man) Monocytes % (Manual) Eosinophils % (Manual) Basophils % (Manual) Metamyelocytes % (Man) Myelocytes % (Man) Promyelocytes % (Man) Blast Cells % (Manual) Plasma Cell % (Manual) Other Cells % Nucleated RBC % Neutrophils # (Manual) Band Neutrophils # Total Absolute Neuts Lymphocytes # (Manual) Prolymphocyte # Reactive Lymphs # Total Abs Lymphocytes Monocytes # (Manual) Eosinophils # (Manual) Basophils # (Manual) Metamyelocytes # (Man) Myelocytes # (Manual) Promyelocytes # (Man) Blast Cells # (Man) Plasma Cell # (Manual) Other Cells # Nucleated RBCs # (Man) Hypersegmented Neuts Hyposegmented Neuts Hypogranular Neuts Large Granular Lymphs # Lrg Granular Lymphs Hairy Cells Smudge Cells Toxic Granulation Toxic Vacuolation Dohle Bodies Javier Rods Platelet Estimate Hypogranular Platelets Giant Platelets Platelet Satelliting RBC Morphology Polychromasia Hypochromasia Poikilocytosis Basophilic Stippling Anisocytosis Microcytosis Macrocytosis Spherocytes Pappenheimer Bodies Sickle Cells Target Cells Tear Drop Cells Ovalocytes Stomatocytes [place] Bodies Echinocytes Acanthocytes (Spur) Rouleaux RBC Agglutinates Schistocytes Sezary Cell PT (9.0-12.0) Seconds INR (0.9-1.1) Sodium (136-145) mmol/L Potassium (3.5-5.1) mmol/L Chloride (98-107) mmol/L Carbon Dioxide (21-32) mmol/L Anion Gap (3-11) BUN (6-23) mg/dl Creatinine (0.6-1.4) mg/dl Est Cr Clr Drug Dosing ml/min Est GFR ( Amer) ml/min Est GFR (Non-Af Amer) ml/min BUN/Creatinine Ratio (10-20) Glucose (70-99(Fasting)) mg/dl Lactate (0.4-2.0) mmol/L Calcium (8.5-10.1) mg/dl Magnesium (1.7-2.4) mg/dl Total Bilirubin (0.2-1.0) mg/dl AST (13-39) U/L ALT (7-52) U/L Alkaline Phosphatase (34-104) U/L Troponin I High Sens (0-20) pg/ml Total Protein (6.0-8.3) gm/dl Albumin (3.4-5.0) gm/dl Globulin (2.5-4.0) gm/dl Albumin/Globulin Ratio (0.9-2) Triglycerides (0-150) mg/dl Cholesterol (0-200) mg/dl LDL Cholesterol, Calc mg/dl VLDL Cholesterol, Calc (0-30) mg/dl HDL Cholesterol mg/dl Cholesterol/HDL Ratio (0-5) Lipase (11-82) U/L Urine Color Urine Appearance (Clear) Urine pH (4.5-7.5) Ur Specific [place] (1.000-1.030) Urine Protein (Negative) Urine Glucose (UA) (Negative) Urine Ketones (Negative) Urine Blood (Negative) Urine Nitrite (Negative) Urine Bilirubin (Negative) Urine Urobilinogen (Negative) Ur Leukocyte Esterase (Negative) Urine WBC (Auto) (0-5) /hpf Urine RBC (Auto) (0-4) /hpf U Hyaline Cast (Auto) (0-5) /lpf U Epithel Cells (Auto) (0-5) /lpf Urine Bacteria (Auto) (Negative) Ur Renal Epithelial Cell Urine Mucus (None Prsent) SARS-CoV-2 (PCR) (Negative) Influenza Type A (PCR) (Neg) Influenza Type B (PCR) (Neg) RSV (RT-PCR) (Neg) Blood Parasites ID Diagnostic Findings CXR: FINDINGS: Cardiomediastinal and hilar silhouettes are within normal limits. No pneumothorax, pleural effusion, airspace consolidation or pulmonary edema. Bones appear grossly intact. IMPRESSION: No acute process. CTAP: FINDINGS: Lung bases: The heart is normal in size and without pericardial effusion. The lung bases are clear. Liver: The contrast-enhanced liver is enlarged, measuring 21.9 cm in length. Attenuation is slightly diminished suggesting mild steatosis. There is no intrahepatic biliary ductal dilatation. The hepatic veins and portal veins are patent. Gallbladder: Unremarkable. Spleen: Normal in size and attenuation. Pancreas: Scattered parenchymal calcifications suggest chronic pancreatitis. No acute inflammatory change is identified. Adrenal glands: Unremarkable. Kidneys: The contrast enhanced kidneys are normal in size and without hydronephrosis. The kidneys enhance symmetrically. Abdominal vasculature: The abdominal aorta is normal in course and caliber. A stent is present in the left iliac vein. The vessel appears patent. Bowel: There is no bowel obstruction. The appendix is well-visualized and normal. Peritoneum: There is no intraperitoneal free air or abdominal ascites. There is a fat-containing umbilical hernia. Lymphadenopathy: None. Pelvic viscera: The bladder is decompressed and appears circumferentially thick walled. The prostate and seminal vesicles unremarkable as visualized. Skeletal structures: No lytic or blastic lesions are seen. IMPRESSION: 1. The bladder wall appears circumferentially thickened. Correlate with clinical findings and urinalysis. 2. There are scattered pancreatic parenchymal calcifications, suggestive of chronic pancreatitis. There is no evidence of acute inflammation. Clinical and laboratory correlation will be required. 3. The liver is enlarged and mildly steatotic. 4. Additional findings as above. Chest CTA: FINDINGS: Lungs and pleura: Minimal atelectasis is seen in the lower lungs. No airspace opacity is seen. There is a 4 mm nodule in the left upper lobe (series 4 image 105). Heart and pericardium: Heart size is normal. No pericardial effusion. Vessels: No aortic dissection or intramural hematoma is seen. Mediastinum and merrill: Subcentimeter lymph nodes are seen. Chest wall and lower neck: Unremarkable. Abdomen: A hiatal hernia is seen. Bones: Mild degenerative changes in the thoracic spine. IMPRESSION: 1. No acute abnormality and in particular no evidence of acute aortic injury. 2. 4 mm nodule in the left upper lobe. According to Fleischner criteria, no follow-up is required in low risk patients, in high-risk patients, a 12 month follow-up CT can be optionally performed.
[2022-07-05 10:00] LABS: Estimated Average Glucose 140 mg/dl; Hemoglobin A1C 6.5 % (4.5-5.6)
--- NOTE | 2022-07-05 10:07 | Cardiology Consultation ---
Date of Consultation July 05, 2022 Assessment & Plan (1) Intractable nausea and vomiting: (2) Chest pain: (3) Abdominal pain, acute, epigastric: Plan 42-year-old male admitted with intractable nausea, vomiting, and substernal/epigastric discomfort. EKGs without acute change. High-sensitivity troponin I negative x2. Resting echocardiogram pending. If serial cardiac enzymes remain normal and resting echocardiogram is without acute abnormality, recommend proceeding with outpatient stress testing once acute noncardiac issues have resolved. Given active gastrointestinal issues, known gastrointestinal adverse reactions with nifedipine, observed hypokalemia, and hypertension, recommend discontinuation of nifedipine and the addition of an ARB. Further recommendations pending the above, evaluation by Dr. Merino, and patient's ongoing hospitalization. Supervising Physician Co-Signing Physician Notes I have reviewed the advance practitioner documentation and agree. I saw and evaluated the patient on the date of service referenced in the note and have performed a medically appropriate history and or exam. I will review the echocardiogram when it is available but I feel the patient's discomfort is noncardiac. The GI service is on the case and we will follow their recommendations. Beyond what has been done thus far from a cardiac standpoint I see no additional cardiac testing at this time. 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 Information is somewhat difficult to discern with patient not overtly forthcoming when answering questions. Cardiology consultation requested due to chest pain. Initial EKG on presentation was technically poor in quality, revealing sinus rhythm at 75 bpm with marked sinus arrhythmia with occasional premature ventricular complexes, nonspecific T wave abnormality in the inferior leads, QTc of 428 ms. Two EKGs were done this morning, the second of which was obtained while having active chest discomfort. The initial EKG this morning revealed normal sinus rhythm at 60 bpm. The second EKG revealed sinus rhythm with sinus arrhythmia, voltage criteria for LVH, nonspecific ST-T wave abnormality. When compared to prior available tracings, there is no significant change. The initial high-sensitivity troponin was normal at 11.4 then 16.9. The third troponin is pending from 10 AM this morning. Chest x-ray on presentation showed no acute process in the chest. CT scan of the chest showed no acute abnormality and, in particular, no evidence of acute aortic injury. A hiatal hernia was observed along with a 4 mm nodule in the left upper lobe, minimal atelectasis in the lower lungs and mild degenerative changes in the thoracic spine. CT scan of the abdomen and pelvis revealed a circumfe rentially thickened bladder wall, scattered pancreatic parenchymal calcifications suggestive of chronic pancreatitis without acute inflammation and an enlarged liver with mild steatosis. A stent was noted in the left iliac vein. The gallbladder was unremarkable as were the kidneys and abdominal aorta. The patient continues to have epigastric discomfort as well as nausea and vomiting. No exertional chest pain prior to hospitalization. No palpitations. No significant shortness of breath of late. No orthopnea or PND. No lower extremity peripheral edema. No dizziness or syncope. No fevers or chills. Past Medical and Surgical History: DVT PE approximately 6 months ago Hypertension GERD Family History: Father with hypertension. Mother with diabetes. Maternal grandmother with CHF. Social History: [place]. 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 Cigar smoker. No cigarettes. No smokeless tobacco. + Marijuana use last approximately 2 weeks ago. No recent alcohol. Allergies Allergy/AdvReac Type Severity Reaction Status Date / Time amoxicillin Allergy Intermediate Hives Unverified 07/04/22 15:57 Home Medications Medication Instructions Recorded Confirmed Type apixaban 5 mg tablet (Eliquis) 5 mg PO BID 07/04/22 07/04/22 History nifedipine 30 mg tablet,extended 30 mg PO DAILY 07/04/22 07/04/22 History release 24 hr ondansetron 4 mg disintegrating 4 mg PO TID PRN Nausea 07/04/22 07/04/22 History tablet pantoprazole 40 mg tablet,delayed 40 mg PO DAILY 07/04/22 07/04/22 History release Patient History Social History Smoking Status: Current every day smoker Cigarettes Per Day: 3; Second Hand Exposure: No; Do You Dip or Chew Tobacco: No; Tobacco Cessation Education Requested by Patient: No Hx Alcohol Use: Yes Alcohol type: beer Hx Substance Use: No Preferred Language: Palestinian Communication Ability: Effective [employer] Qu[employer] Tender Required: No Beliefs That Will Affect Care: None Current Living Situation: Spouse Other Information That Helps Us Care for You: No Feels Safe at Home: Yes Safety Concerns: Feels Safe At This Time Assistive Devices: None Review of Systems Review of Systems: Complete review of systems is otherwise as stated above, negative, noncontributory. Physical Exam Physical Exam: General: A&Ox3. Mild distress. HENT: Normocephalic. Atraumatic. Eyes: PER. Conjunctiva pink, sclera clear. Neck: No carotid bruits. No JVD. Heart: Irregular with occasional ectopic beat. Soft systolic murmur heard best at the left upper sternal border. No diastolic murmur. No rub. PMI is nondisplaced. Lungs: Clear to auscultation. Abdomen: + Epigastric tenderness. +BS. Extremities: No clubbing, cyanosis, or edema. Limited neurological examination is without focal deficits. Pulses: radial=2/4, posterior tibial=2/4. Results & Data ([facility]) Vital Signs (Past 12 Hours) Vital Signs Temp Pulse Pulse Resp BP BP Pulse Ox 07/05/22 09:08 69 20 176/96 H 97 07/05/22 09:00 36.9 C 64 18 192/99 H 98 07/05/22 07:48 37.0 C 59 L 18 184/81 H 98 07/05/22 07:12 65 07/05/22 04:00 36.9 C 79 18 163/77 H 98 07/04/22 23:58 84 07/04/22 22:58 07/04/22 22:58 36.8 C 75 16 120/73 96 O2 Del Method 07/05/22 09:08 Room Air 07/05/22 09:00 Room Air 07/05/22 07:48 Room Air 07/05/22 07:12 07/05/22 04:00 Room Air 07/04/22 23:58 07/04/22 22:58 Room Air 07/04/22 22:58 Room Air Laboratory Results Cardiac Enzymes 07/04/22 07/05/22 Range/Units 14:15 07:53 AST 19 (13-39) U/L Troponin I High Sens 11.4 16.9 D (0-20) pg/ml Coagulation 07/04/22 Range/Units 14:15 PT 10.4 (9.0-12.0) Seconds Lipids 07/05/22 Range/Units 07:53 Triglycerides 67 (0-150) mg/dl Cholesterol 156 (0-200) mg/dl HDL Cholesterol 49 mg/dl Cholesterol/HDL Ratio 3.2 (0-5) CBC 07/04/22 07/05/22 07/05/22 Range/Units 14:15 07:53 08:41 WBC 11.73 H Cancelled 13.32 H (4.8-10.8) K/ul RBC 5.20 Cancelled 5.26 (4.70-6.10) M/uL Hgb 13.2 L Cancelled 13.5 L (14.0-18.0) g/dl Hct 40.3 L Cancelled 40.5 L (42.0-52.0) % Plt Count 270 Cancelled 236 (130-400) K/uL Neut # (Auto) 10.59 H Cancelled 11.57 H (1.40-6.50) K/uL Lymph # (Auto) 0.70 L Cancelled 0.95 L (1.2-3.4) K/uL Bath # (Auto) 0.40 Cancelled 0.74 H (0.11-0.59) K/uL Eos # (Auto) 0.00 Cancelled 0.00 (0-0.50) K/uL Baso # (Auto) 0.01 Cancelled 0.01 (0-0.2) K/uL Comprehensive Metabolic Panel 07/04/22 07/05/22 Range/Units 14:15 07:53 Sodium 142 140 (136-145) mmol/L Potassium 3.8 3.4 L (3.5-5.1) mmol/L Chloride 106 106 (98-107) mmol/L Carbon Dioxide 25 27 (21-32) mmol/L BUN 10 11 (6-23) mg/dl Creatinine 1.04 0.98 (0.6-1.4) mg/dl Glucose 185 H 160 H (70-99(Fasting)) mg/dl Calcium 9.8 9.4 (8.5-10.1) mg/dl AST 19 (13-39) U/L ALT 22 (7-52) U/L Alkaline Phosphatase 130 H (34-104) U/L Total Protein 8.3 (6.0-8.3) gm/dl Albumin 4.7 (3.4-5.0) gm/dl Intake and Output 07/04/22 07/05/22 07/05/22 22:59 06:59 14:59 Intake Total 1999 1000 / 1000 Balance 1999 1000 / 1000 Intake: IV 1999 1000 / 1000 Sodium Chloride 0.9% 1000ML 1, 1999 1000 / 1000 000 ml @ 125 mls/hr IV .Q8H [facility] Rx#:[id number] Other: Other Intake Source SIPS/CHIPS Weight 127 kg 122.7 kg 122.7 kg Weight Measurement Method Standing Scale Standing Scale Patient Weight 07/06/22 06:59 Weight 122.7 kg Diagnostic Findings Continuous telemetry monitoring reveals sinus rhythm with sinus arrhythmia with heart rates ranging from the 50s to 70s with 1 dropped complex and short episode of Mobitz type I second-degree heart block
[2022-07-05] MEDS: LOSARTAN POTASSIUM 50 MG TAB PO SCH (11:28)
[2022-07-05 11:46] LABS: Amphetamines+Metham, Urine Neg (Neg); Barbiturates, Urine Neg (Neg); Benzodiazepine, Urine Neg (Neg); Cocaine, Urine Neg (Neg); MDMA (Ecstacy), Urine Neg (Neg); Methadone, Urine Neg (Neg); Opiate, Urine Pos (Neg); Phencyclidine, Urine Neg (Neg)
[2022-07-05] MEDS ORDERED: hydrALAZINE HCL 20 MG/ML VIAL IV PRN (12:50)
[2022-07-05] MEDS: MoRPHine SULFATE 2 MG/ML CARP IV PRN ×3 (17:11→23:14)
--- NOTE | 2022-07-05 18:04 | Hospitalist Progress Note ---
Date of Service July 05, 2022 Assessment & Plan (1) Intractable nausea and vomiting: Plan: Patient is 42 yr male presents with chest pain. Chest/Epigastric pain: Likely Cannabis hyperemesis syndrome H/O chronic pancreatitis Potential to overuse pain medications --CT ABD:The bladder wall appears circumferentially thickened. Correlate with clinical findings and urinalysis. There are scattered pancreatic parenchymal calcifications, suggestive of chronic pancreatitis. There is no evidence of acute inflammation. Clinical and laboratory correlation will be required. The liver is enlarged and mildly steatotic. --CT Chest:No acute abnormality and in particular no evidence of acute aortic injury. 4 mm nodule in the left upper lobe. According to Fleischner criteria, no follow-up is required in low risk patients, in high-risk patients, a 12 month follow-up CT can be optionally performed. -- Normal lipase, LFTs --Troponin X3 Negative, 4th 23.9 --ECHO pending -Tox screen positive for marijuana N.p.o. for now IV fluids Pain control Counseled to quit marijuana use Appreciate GI, cardiology input Off Note: Patient requests Haldol for anxiety Continue PPI May need outpatient stress test Hypertensive urgency Nifedipine discontinued due to GI symptoms as per cardiology Started on losartan IV hydralazine as needed Pain control H/O PE/DVT Continue Eliquis Elevated lactic acidosis Likely due to severe dehydration Lactic acid levels normalized with IV fluids GERD On Protonix DVT Px: Eliquis. CODE STATUS Full Code Admission and Anticipated Discharge Date Admission Date: July 04, 2022 Subjective Patient is seen and examined at bedside States having nausea, vomiting, epigastric abdominal pain Denies any chest pain, shortness of breath Discussed with patient's at bedside No other complaints Review of Systems Review of Systems: All systems reviewed & are unremarkable except as noted in Subjective Physical Exam Physical Exam: Physical Exam: Vitals signs as noted above General Appearance:Moderately built and nourished, no apparent distress Head: normocephalic, Atraumatic Eyes: normal inspection, EOMI Neck: supple, Trachea midline Respiratory/Chest: Decreased breath sounds, CTA, No accessory muscle use Cardiovascular: S1, S2, No murmur Abdomen/GI:Soft, Epigastric tender, Bowel sounds present Extremities/Musculoskeletal:normal inspection, no edema Neurologic/Psych:AAOX3, grossly no focal neurological deficits Skin: normal color, warm Results & Data Results & Data ([facility]) Vital Signs (Past 12 Hours) Vital Signs Temp Pulse Pulse Resp BP BP Pulse Ox 07/05/22 15:00 63 07/05/22 11:31 69 18 196/99 H 07/05/22 11:17 37.3 C 70 19 195/113 H 100 07/05/22 09:08 69 20 176/96 H 97 07/05/22 09:00 36.9 C 64 18 192/99 H 98 07/05/22 07:48 37.0 C 59 L 18 184/81 H 98 07/05/22 07:12 65 O2 Del Method 07/05/22 15:00 07/05/22 11:31 Room Air 07/05/22 11:17 Room Air 07/05/22 09:08 Room Air 07/05/22 09:00 Room Air 07/05/22 07:48 Room Air 07/05/22 07:12 Laboratory Results Short CBC 07/05/22 07/05/22 Range/Units 07:53 08:41 WBC Cancelled 13.32 H Hgb Cancelled 13.5 L Hct Cancelled 40.5 L Plt Count Cancelled 236 BMP 07/05/22 07:53 Sodium 140 Potassium 3.4 L Chloride 106 Carbon Dioxide 27 BUN 11 Creatinine 0.98 Glucose 160 H Calcium 9.4 Urine 07/04/22 Range/Units 17:25 Urine Color Yellow Urine Appearance Clear (Clear) Urine pH 6.0 (4.5-7.5) Ur Specific [place] 1.030 (1.000-1.030) Urine Protein 1+ H (Negative) Urine Glucose (UA) Trace H (Negative)
[2022-07-05] MEDS: PANTOprazole 40 MG TAB PO SCH (20:14)
[2022-07-06] MEDS: ONDANSETRON INJ 2 MG/ML 2 ML VIAL IV PRN ×3 (02:16→17:01)
[2022-07-06] MEDS: MoRPHine SULFATE 2 MG/ML CARP IV PRN ×3 (02:16→08:47)
--- NOTE | 2022-07-06 06:07 | Electrocardiogram Report ---
Test Reason : Blood Pressure : / mmHG Vent. Rate : 060 BPM Atrial Rate : 060 BPM P-R Int : 156 ms QRS Dur : 102 ms QT Int : 386 ms P-R-T Axes : 053 063 051 degrees QTc Int : 386 ms Normal sinus rhythm Normal ECG When compared with ECG of 04-JUL-2022 14:10, Premature ventricular complexes are no longer Present Confirmed by Stewart Guzmán ([id number]) on 07/06/2022 6:07:16 AM Referred By: REFERRED SELF Confirmed By:Stewart Guzmán
--- NOTE | 2022-07-06 06:12 | Electrocardiogram Report ---
Test Reason : Blood Pressure : / mmHG Vent. Rate : 063 BPM Atrial Rate : 063 BPM P-R Int : 174 ms QRS Dur : 102 ms QT Int : 420 ms P-R-T Axes : 059 051 039 degrees QTc Int : 429 ms Sinus rhythm with marked sinus arrhythmia Moderate voltage criteria for LVH, may be normal variant Nonspecific ST and T wave abnormality Abnormal ECG When compared with ECG of 05-JUL-2022 06:07, (unconfirmed) No significant change was found Confirmed by Stewart Guzmán ([id number]) on 07/06/2022 6:11:53 AM Referred By: REFERRED SELF Confirmed By:Stewart Guzmán
[2022-07-06] MEDS: SODIUM CHLORIDE 0.9% 1000ML 1,000 ML IV SCH (06:30)
[2022-07-06] MEDS ORDERED: SODIUM CHLORIDE 0.9% 1000ML 1,000 ML IV ONE (06:49)
[2022-07-06] MEDS: PANTOprazole 40 MG TAB PO SCH ×2 (08:06→21:16)
[2022-07-06] MEDS: ASPIRIN 81 MG ECTAB PO SCH (08:06)
[2022-07-06] MEDS: APIXABAN 5 MG TABLET PO SCH ×2 (08:06→21:16)
[2022-07-06] MEDS: LOSARTAN POTASSIUM 50 MG TAB PO SCH ×2 (08:07→21:16)
--- NOTE | 2022-07-06 09:17 | Electrocardiogram Report ---
Test Reason : Blood Pressure : / mmHG Vent. Rate : 063 BPM Atrial Rate : 063 BPM P-R Int : 174 ms QRS Dur : 102 ms QT Int : 420 ms P-R-T Axes : 059 051 039 degrees QTc Int : 429 ms Sinus rhythm with marked sinus arrhythmia Moderate voltage criteria for LVH, may be normal variant Nonspecific ST and T wave abnormality Abnormal ECG When compared with ECG of 05-JUL-2022 06:07, (unconfirmed) No significant change was found Confirmed by Stewart Guzmán ([id number]) on 07/06/2022 6:11:53 AM Also confirmed by Stewart Guzmán ([id number]), map editor Christopher Floyd ([id number]) on 07/06/2022 9:17:14 AM Referred By: REFERRED SELF Confirmed By:Stewart Guzmán
[2022-07-06 09:40] LABS: Hematocrit (blood only) 38.3 % (42.0-52.0); Hemoglobin 12.7 g/dl (14.0-18.0); Mean Corpuscular Hemoglobin 25.5 pg (25.0-34.0); Mean Corpuscular Hgb Conc 33.2 g/dL (32.0-36.0); Mean Corpuscular Volume 76.9 fL (80.0-100.0); Mean Platelet Volume 10.7 fL (9.4-12.4); Platelet Count 199 K/uL (130-400); RDW Coefficient of Variation 14.5 % (11.5-14.5); Red Blood Count 4.98 M/uL (4.70-6.10)
[2022-07-06 09:57] LABS: BUN Creatinine Ratio 12.7 (10-20); Calcium 8.9 mg/dl (8.5-10.1); Creatinine Clr Calc Pharmacy 130.2 ml/min; Est GFR (African American) 106.1 ml/min; Est GFR (Non-African American) 91.5 ml/min; Potassium 3.2 mmol/L (3.5-5.1)
--- NOTE | 2022-07-06 10:30 | Cardiology Progress Note ---
Date of Service July 06, 2022 Assessment & Plan (1) Intractable nausea and vomiting: (2) Abdominal pain, acute, epigastric: (3) Chest pain: Plan 42-year-old male admitted with intractable nausea, vomiting, and substernal/epigastric discomfort. EKGs without acute change. High sensitivity troponin 11.4->14.5->23.9 pg/mL. Resting echocardiography with preserved left ventricular systolic function without wall motion abnormalities. No additional inpatient cardiac testing planned. Supplemental potassium ordered. Nifedipine discontinued this admission. Losartan prescribed. Please contact with any questions or concerns. Admission and Anticipated Discharge Date Admission Date: July 04, 2022 Subjective Patient seen and examined. Chart, medications, and telemetry reviewed. Keren at bedside. Recurrent chest discomfort after eating yogurt this morning. Last episode of emesis was around 1 AM. Continuous telemetry monitoring reveals sinus rhythm with heart rates in the 80s and 90s. No significant bradycardia. No atrial fibrillation. EKG from July 06, 2022 2:22:37 revealed normal sinus rhythm at 76 bpm with possible left atrial enlargement. When compared to prior available tracing, there is no significant change. EKG from July 05, 2022 revealed sinus rhythm at 63 bpm with sinus arrhythmia, voltage criteria for LVH, nonspecific STT wave abnormality. July 05, 2022 TTE Interpretation Summary ([facility], Dr. Charles Merino): Normal size LV. Normal LV wall motion. Normal LV systolic function. EF 60-65%. Normal RV systolic function. Normal LA size. Normal RA size. No significant valvular pathology. Review of Systems Review of Systems: Complete review of systems is otherwise as stated above, negative, noncontributory. Physical Exam Physical Exam: General: A&Ox3. HENT: Normocephalic. Atraumatic. Eyes: PER. Conjunctiva pink, sclera clear. Neck: No carotid bruits. No JVD. Heart: RRR, 80 bpm. Soft systolic murmur heard best at the left upper sternal border. No diastolic murmur. No rub. PMI is nondisplaced. Lungs: Clear to auscultation. Abdomen: + Epigastric tenderness. +BS. Extremities: No clubbing, cyanosis, or edema. Limited neurological examination is without focal deficits. Pulses: radial=2/4, posterior tibial=2/4. Results & Data ([facility]) Vital Signs (Past 12 Hours) Vital Signs Temp Pulse Resp BP Pulse Ox O2 Del Method 07/06/22 07:47 37.0 C 82 18 147/68 H 98 Room Air 07/06/22 02:39 36.9 C 66 18 143/83 H 96 Room Air 07/05/22 22:52 36.7 C 83 16 153/80 H 95 Room Air Laboratory Results Cardiac Enzymes 07/05/22 07/05/22 Range/Units 09:56 16:47 Troponin I High Sens 14.5 23.9 H (0-20) pg/ml CBC 07/06/22 Range/Units 08:26 WBC 8.60 (4.8-10.8) K/ul RBC 4.98 (4.70-6.10) M/uL Hgb 12.7 L (14.0-18.0) g/dl Hct 38.3 L (42.0-52.0) % Plt Count 199 (130-400) K/uL Comprehensive Metabolic Panel 07/06/22 Range/Units 08:26 Sodium 140 (136-145) mmol/L Potassium 3.2 L (3.5-5.1) mmol/L Chloride 104 (98-107) mmol/L Carbon Dioxide 28 (21-32) mmol/L BUN 13 (6-23) mg/dl Creatinine 1.02 (0.6-1.4) mg/dl Glucose 107 H (70-99(Fasting)) mg/dl Calcium 8.9 (8.5-10.1) mg/dl Intake and Output 07/05/22 07/06/22 07/06/22 22:59 06:59 14:59 Intake Total 1000 / 3026.25 1026.25 / 3026.25 Output Total 350 / 1200 Balance 650 / 1826.25 1026.25 / 1826.25 Intake: IV 1000 / 3026.25 1026.25 / 3026.25 Sodium Chloride 0.9% 1000ML 1, 1000 / 3026.25 1026.25 / 3026.25 000 ml @ 75 mls/hr IV .[id number] [facility] Rx#:[id number] Output: Emesis 350 / 900 Other: Other Intake Source npo sips and chips npo
[2022-07-06] MEDS ORDERED: POTASSIUM CHLORIDE CRTAB 20 MEQ TABCR PO ONE (10:32)
[2022-07-06] MEDS: FAMOTIDINE 20 MG in SYRINGE 3 ML IV PRN (11:30)
--- NOTE | 2022-07-06 12:23 | Electrocardiogram Report ---
Test Reason : Blood Pressure : / mmHG Vent. Rate : 076 BPM Atrial Rate : 076 BPM P-R Int : 154 ms QRS Dur : 100 ms QT Int : 404 ms P-R-T Axes : 062 026 029 degrees QTc Int : 454 ms Normal sinus rhythm Left atrial enlargement Minor Anterior ST elevation, most consistent with repolarization variant When compared with ECG of 05-JUL-2022 09:02, No significant change was found Confirmed by Paras Brody ([id number]) on 07/06/2022 12:23:06 PM Referred By: REFERRED SELF Confirmed By:Paras Brody
[2022-07-06] MEDS ORDERED: MoRPHine SULFATE 2 MG/ML CARP IV PRN (15:00)
--- NOTE | 2022-07-06 15:47 | Hospitalist Progress Note ---
Date of Service July 06, 2022 Assessment & Plan (1) Intractable nausea and vomiting: Plan: Patient is 42 yr male presents with chest pain. Chest/Epigastric pain: Likely Cannabis hyperemesis syndrome H/O chronic pancreatitis Potential to overuse pain medications --CT ABD:The bladder wall appears circumferentially thickened. Correlate with clinical findings and urinalysis. There are scattered pancreatic parenchymal calcifications, suggestive of chronic pancreatitis. There is no evidence of acute inflammation. Clinical and laboratory correlation will be required. The liver is enlarged and mildly steatotic. --CT Chest:No acute abnormality and in particular no evidence of acute aortic injury. 4 mm nodule in the left upper lobe. According to Fleischner criteria, no follow-up is required in low risk patients, in high-risk patients, a 12 month follow-up CT can be optionally performed. -- Normal lipase, LFTs --Troponin X3 Negative, 4th 23.9 --ECHO: Left ventricle wall motion normal. EF 60 to 65%. No significant valvular pathology. -Tox screen positive for marijuana IV fluids Pain control--Minimize Narcotic use as able Counseled to quit marijuana use Appreciate GI, cardiology input Off Note: Patient requests Haldol for anxiety Continue PPI May need outpatient stress test Advance diet as tolerated Hypertensive urgency Nifedipine discontinued due to GI symptoms as per cardiology Continue losartan IV hydralazine as needed Pain control BP better today H/O PE/DVT Continue Eliquis Elevated lactic acidosis Likely due to severe dehydration Lactic acid levels normalized with IV fluids GERD On Protonix DVT Px: Eliquis. CODE STATUS Full Code Admission and Anticipated Discharge Date Admission Date: July 06, 2022 Subjective Patient is seen and examined at bedside Abdominal pain better but intermittently rates to upper chest Tolerating diet Discussed with patient's at bedside Review of Systems Review of Systems: All systems reviewed & are unremarkable except as noted in Subjective Physical Exam Physical Exam: Physical Exam: Vitals signs as noted above General Appearance:Moderately built and nourished, no apparent distress Head: normocephalic, Atraumatic Eyes: normal inspection, EOMI Neck: supple, Trachea midline Respiratory/Chest: Decreased breath sounds, CTA, No accessory muscle use Cardiovascular: S1, S2, No murmur Abdomen/GI:Soft, Epigastric tender, Bowel sounds present Extremities/Musculoskeletal:normal inspection, no edema Neurologic/Psych:AAOX3, grossly no focal neurological deficits Skin: normal color, warm Results & Data Results & Data ([facility] [place]) Vital Signs (Past 12 Hours) Vital Signs Temp Pulse Resp BP Pulse Ox O2 Del Method 07/06/22 07:47 37.0 C 82 18 147/68 H 98 Room Air Laboratory Results Short CBC 07/06/22 Range/Units 08:26 WBC 8.60 (4.8-10.8) K/ul Hgb 12.7 L (14.0-18.0) g/dl Hct 38.3 L (42.0-52.0) % Plt Count 199 (130-400) K/uL BMP 07/06/22 08:26 Sodium 140 Potassium 3.2 L Chloride 104 Carbon Dioxide 28 BUN 13 Creatinine 1.02 Glucose 107 H Calcium 8.9
[2022-07-06 23:13] LABS: Codeine Urine NEGATIVE ng/mL (<50); Hydrocodone Urine NEGATIVE ng/mL (<50); Hydromor Urine NEGATIVE ng/mL (<50); Marijuana Quant, GCMS Urine 2731 ng/mL (<5); Morphine Urine 3970 ng/mL (<50); Norhydrocodone Conf Ur NEGATIVE ng/mL (<50); Noroxycodone Urine NEGATIVE ng/mL (<50); Oxycodone Urine NEGATIVE ng/mL (<50); Oxymorph Urine NEGATIVE ng/mL (<50)
[2022-07-06] MEDS: PROCHLORPERAZINE 5 MG in SYRINGE 4 ML IV PRN (23:58)
[2022-07-07] MEDS: FAMOTIDINE 20 MG in SYRINGE 3 ML IV PRN (00:23)
[2022-07-07] MEDS: LOSARTAN POTASSIUM 50 MG TAB PO SCH (08:05)
[2022-07-07] MEDS: ASPIRIN 81 MG ECTAB PO SCH (08:05)
[2022-07-07] MEDS: APIXABAN 5 MG TABLET PO SCH (08:05)
[2022-07-07] MEDS: PANTOprazole 40 MG TAB PO SCH (08:05)
[2022-07-07 08:13] LABS: BUN Creatinine Ratio 13.1 (10-20); Calcium 8.9 mg/dl (8.5-10.1); Creatinine Clr Calc Pharmacy 124.1 ml/min; Est GFR (African American) 100.1 ml/min; Est GFR (Non-African American) 86.4 ml/min; Potassium 3.3 mmol/L (3.5-5.1)
[2022-07-07] MEDS ORDERED: POTASSIUM CHLORIDE CRTAB 20 MEQ TABCR PO ONE (09:13)
--- NOTE | 2022-07-07 12:03 | Hospitalist Progress Note ---
Date of Service July 07, 2022 Assessment & Plan (1) Intractable nausea and vomiting: Plan: Patient is 42 yr male presents with chest pain. : Cannabis hyperemesis syndrome H/O chronic pancreatitis Potential to overuse pain medications --CT ABD:The bladder wall appears circumferentially thickened. Correlate with clinical findings and urinalysis. There are scattered pancreatic parenchymal calcifications, suggestive of chronic pancreatitis. There is no evidence of acute inflammation. Clinical and laboratory correlation will be required. The liver is enlarged and mildly steatotic. --CT Chest:No acute abnormality and in particular no evidence of acute aortic injury. 4 mm nodule in the left upper lobe. According to Fleischner criteria, no follow-up is required in low risk patients, in high-risk patients, a 12 month follow-up CT can be optionally performed. -- Normal lipase, LFTs --Troponin X3 Negative, 4th 23.9 --ECHO: Left ventricle wall motion normal. EF 60 to 65%. No significant valvular pathology. 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 CODE STATUS Full Code Disposition Home Admission and Anticipated Discharge Date Admission Date: July 06, 2022 Subjective Patient is seen and examined at bedside States feeling better today No new complaints Abd pain, nausea, vomiting resolved Tolerating regular diet Review of Systems Review of Systems: All systems reviewed & are unremarkable except as noted in Subjective Physical Exam Physical Exam: Physical Exam: Vitals signs as noted above General Appearance:Moderately built and nourished, no apparent distress Head: normocephalic, Atraumatic Eyes: normal inspection, EOMI Neck: supple, Trachea midline Respiratory/Chest: Decreased breath sounds, CTA, No accessory muscle use Cardiovascular: S1, S2, No murmur Abdomen/GI:Soft, Epigastric tender, Bowel sounds present Extremities/Musculoskeletal:normal inspection, no edema Neurologic/Psych:AAOX3, grossly no focal neurological deficits Skin: normal color, warm Results & Data Results & Data ([facility]) Vital Signs (Past 12 Hours) Vital Signs Temp Pulse Pulse Resp BP Pulse Ox O2 Del Method 07/07/22 10:50 37.0 C 60 16 157/90 H 98 Room Air 07/07/22 08:02 37.2 C 66 16 156/94 H 100 Room Air 07/07/22 07:22 59 L Laboratory Results [facility] 07/07/22 07:17 Sodium 141 Potassium 3.3 L Chloride 105 Carbon Dioxide 29 BUN 14 Creatinine 1.07 Glucose 109 H Calcium 8.9
--- NOTE | 2022-07-07 12:23 | Discharge Summary ---
Date of Service July 07, 2022 Admission HPI Per Admitting Provider CHIEF COMPLAINT: Chest pain. HISTORY OF PRESENT ILLNESS: A 42-year-old male unassigned patinet. 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 He lives in [place], comes because of nausea and vomiting going on since yesterday and also developed chest pain in the middle of the chest, about 8_/10 in severity associated with some nausea as well as sweating. Denies any shortness of breath. No fevers, no headache, no dizziness. He says he has blurred vision in the mornings when he wakes up. Denies any earache, no runny nose, no sore throat, no cough, no abdominal pain. He says he is getting on and off blood in the stools. He has seen by GI and had colonoscopy and some polyps were taken out and he is supposed to follow up with GI again. Normal bladder movements. No swelling in the legs. The patient was diagnosed with history of DVT and PE 6 months ago, on Eliquis. At that time he was diagnosed with HTN. He has appointment with hem/onc to decide whether to continue the Eliquis or not. He is a trucking manager and he thinks it mostly happened because he is sitting all the time on the truck. Right now, he is trying to walk and use compression stockings while driving. Currently, resting comfortably and hemodynamically stable. Admission Exam Per Admitting Provider PHYSICAL EXAMINATION: GENERAL: The patient is obese, not in acute distress. VITAL SIGNS: Temperature 36.8, pulse 86, respiratory rate 18, blood pressure 150/103, oxygen 96% on room air. HEENT: Pupils equal, round and reactive to light. Oral mucosa moist. NECK: No JVD. No neck masses. CARDIOVASCULAR: S1 and S2 heard. Regular rate and rhythm. No murmur, no gallop. RESPIRATORY SYSTEM: Normal AP diameter. No accessory muscle use. No wheezing, crackles. ABDOMEN: Soft, bowel sounds present, nontender, no distention. CENTRAL NERVOUS SYSTEM: Alert and oriented. Speech is clear. No facial droop. Obeys simple commands. Moves extremities. EXTREMITIES: No edema, no erythema. Principal Diagnosis Cannabis hyperemesis syndrome Hypertensive urgency Diabetes Mellitus Type II Discharge Data Allergies Allergy/AdvReac Type Severity Reaction Status Date / Time amoxicillin Allergy Intermediate Hives Unverified 07/04/22 15:57 Consultations 07/04/22 19:03 ED Decision to Admit Stat 07/05/22 08:00 Consult Cardiology Routine 07/05/22 09:31 Consult Gastroenterology Routine Procedures Performed Laboratory Results WBC 8.60 K/ul (4.8-10.8) 07/06/22 08:26 RBC 4.98 M/uL (4.70-6.10) 07/06/22 08:26 Hgb 12.7 g/dl (14.0-18.0) L 07/06/22 08:26 Hct 38.3 % (42.0-52.0) L 07/06/22 08:26 MCV 76.9 fL (80.0-100.0) L 07/06/22 08:26 MCH 25.5 pg (25.0-34.0) 07/06/22 08:26 MCHC 33.2 g/dL (32.0-36.0) 07/06/22 08:26 RDW Std Deviation 40.0 fL (36.4-46.3) 07/06/22 08:26 RDW Coeff of Argenis 14.5 % (11.5-14.5) 07/06/22 08:26 Plt Count 199 K/uL (130-400) 07/06/22 08:26 MPV 10.7 fL (9.4-12.4) 07/06/22 08:26 Immature Gran % (Auto) 0.4 % 07/05/22 08:41 Neut % (Auto) 86.8 % 07/05/22 08:41 Lymph % (Auto) 7.1 % 07/05/22 08:41 Snyder % (Auto) 5.6 % 07/05/22 08:41 Eos % (Auto) 0.0 % 07/05/22 08:41 Baso % (Auto) 0.1 % 07/05/22 08:41 Neut # (Auto) 11.57 K/uL (1.40-6.50) H 07/05/22 08:41 Lymph # (Auto) 0.95 K/uL (1.2-3.4) L 07/05/22 08:41 Snyder # (Auto) 0.74 K/uL (0.11-0.59) H 07/05/22 08:41 Eos # (Auto) 0.00 K/uL (0-0.50) 07/05/22 08:41 Baso # (Auto) 0.01 K/uL (0-0.2) 07/05/22 08:41 Immature Gran # (Auto) 0.05 K/uL (0.01-0.20) 07/05/22 08:41 Absolute Nucleated RBC Cancelled 07/05/22 07:53 Nucleated RBC % (auto) Cancelled 07/05/22 07:53 Neutrophils % (Manual) Cancelled 07/05/22 07:53 Band Neutrophils % Cancelled 07/05/22 07:53 Lymphocytes % (Manual) Cancelled 07/05/22 07:53 Prolymphocyte % Cancelled 07/05/22 07:53 Reactive Lymphs % (Man) Cancelled 07/05/22 07:53 Monocytes % (Manual) Cancelled 07/05/22 07:53 Eosinophils % (Manual) Cancelled 07/05/22 07:53 Basophils % (Manual) Cancelled 07/05/22 07:53 Metamyelocytes % (Man) Cancelled 07/05/22 07:53 Myelocytes % (Man) Cancelled 07/05/22 07:53 Promyelocytes % (Man) Cancelled 07/05/22 07:53 Blast Cells % (Manual) Cancelled 07/05/22 07:53 Plasma Cell % (Manual) Cancelled 07/05/22 07:53 Other Cells % Cancelled 07/05/22 07:53 Nucleated RBC % Cancelled 07/05/22 07:53 Neutrophils # (Manual) Cancelled 07/05/22 07:53 Band Neutrophils # Cancelled 07/05/22 07:53 Total Absolute Neuts Cancelled 07/05/22 07:53 Lymphocytes # (Manual) Cancelled 07/05/22 07:53 Prolymphocyte # Cancelled 07/05/22 07:53 Reactive Lymphs # Cancelled 07/05/22 07:53 Total Abs Lymphocytes Cancelled 07/05/22 07:53 Monocytes # (Manual) Cancelled 07/05/22 07:53 Eosinophils # (Manual) Cancelled 07/05/22 07:53 Basophils # (Manual) Cancelled 07/05/22 07:53 Metamyelocytes # (Man) Cancelled 07/05/22 07:53 Myelocytes # (Manual) Cancelled 07/05/22 07:53 Promyelocytes # (Man) Cancelled 07/05/22 07:53 Blast Cells # (Man) Cancelled 07/05/22 07:53 Plasma Cell # (Manual) Cancelled 07/05/22 07:53 Other Cells # Cancelled 07/05/22 07:53 Nucleated RBCs # (Man) Cancelled 07/05/22 07:53 Hypersegmented Neuts Cancelled 07/05/22 07:53 Hyposegmented Neuts Cancelled 07/05/22 07:53 Hypogranular Neuts Cancelled 07/05/22 07:53 Large Granular Lymphs Cancelled 07/05/22 07:53 # Lrg Granular Lymphs Cancelled 07/05/22 07:53 Hairy Cells Cancelled 07/05/22 07:53 Smudge Cells Cancelled 07/05/22 07:53 Toxic Granulation Cancelled 07/05/22 07:53 Toxic Vacuolation Cancelled 07/05/22 07:53 Dohle Bodies Cancelled 07/05/22 07:53 Javier Rods Cancelled 07/05/22 07:53 Platelet Estimate Cancelled 07/05/22 07:53 Hypogranular Platelets Cancelled 07/05/22 07:53 Giant Platelets Cancelled 07/05/22 07:53 Platelet Satelliting Cancelled 07/05/22 07:53 RBC Morphology Cancelled 07/05/22 07:53 Polychromasia Cancelled 07/05/22 07:53 Hypochromasia Cancelled 07/05/22 07:53 Poikilocytosis Cancelled 07/05/22 07:53 Basophilic Stippling Cancelled 07/05/22 07:53 Anisocytosis Cancelled 07/05/22 07:53 Microcytosis Cancelled 07/05/22 07:53 Macrocytosis Cancelled 07/05/22 07:53 Spherocytes Cancelled 07/05/22 07:53 Pappenheimer Bodies Cancelled 07/05/22 07:53 Sickle Cells Cancelled 07/05/22 07:53 Target Cells Cancelled 07/05/22 07:53 Tear Drop Cells Cancelled 07/05/22 07:53 Ovalocytes Cancelled 07/05/22 07:53 Stomatocytes Cancelled 07/05/22 07:53 Gaytan-Greybull Bodies Cancelled 07/05/22 07:53 Echinocytes Cancelled 07/05/22 07:53 Acanthocytes (Spur) Cancelled 07/05/22 07:53 Rouleaux Cancelled 07/05/22 07:53 RBC Agglutinates Cancelled 07/05/22 07:53 Schistocytes Cancelled 07/05/22 07:53 Sezary Cell Cancelled 07/05/22 07:53 PT 10.4 Seconds (9.0-12.0) 07/04/22 14:15 INR 1.0 (0.9-1.1) 07/04/22 14:15 Sodium 141 mmol/L (136-145) 07/07/22 07:17 Potassium 3.3 mmol/L (3.5-5.1) L 07/07/22 07:17 Chloride 105 mmol/L (98-107) 07/07/22 07:17 Carbon Dioxide 29 mmol/L (21-32) 07/07/22 07:17 Anion Gap 7 (3-11) 07/07/22 07:17 BUN 14 mg/dl (6-23) 07/07/22 07:17 Creatinine 1.07 mg/dl (0.6-1.4) 07/07/22 07:17 Est Cr Clr Drug Dosing 124.1 ml/min 07/07/22 07:17 Est GFR ( Amer) 100.1 ml/min 07/07/22 07:17 Est GFR (Non-Af Amer) 86.4 ml/min 07/07/22 07:17 BUN/Creatinine Ratio 13.1 (10-20) 07/07/22 07:17 Glucose 109 mg/dl (70-99(Fasting)) H 07/07/22 07:17 Estimat Average Glucose 140 mg/dl 07/05/22 08:41 Hemoglobin A1c 6.5 % (4.5-5.6) H 07/05/22 08:41 Lactate 1.6 mmol/L (0.4-2.0) 07/05/22 08:11 Calcium 8.9 mg/dl (8.5-10.1) 07/07/22 07:17 Magnesium 1.8 mg/dl (1.7-2.4) 07/05/22 07:53 Total Bilirubin 0.9 mg/dl (0.2-1.0) 07/04/22 14:15 AST 19 U/L (13-39) 07/04/22 14:15 ALT 22 U/L (7-52) 07/04/22 14:15 Alkaline Phosphatase 130 U/L (34-104) H 07/04/22 14:15 Troponin I High Sens 23.9 pg/ml (0-20) H 07/05/22 16:47 Total Protein 8.3 gm/dl (6.0-8.3) 07/04/22 14:15 Albumin 4.7 gm/dl (3.4-5.0) 07/04/22 14:15 Globulin 3.6 gm/dl (2.5-4.0) 07/04/22 14:15 Albumin/Globulin Ratio 1.3 (0.9-2) 07/04/22 14:15 Triglycerides 67 mg/dl (0-150) 07/05/22 07:53 Cholesterol 156 mg/dl (0-200) 07/05/22 07:53 LDL Cholesterol, Calc 94 mg/dl 07/05/22 07:53 VLDL Cholesterol, Calc 13 mg/dl (0-30) 07/05/22 07:53 HDL Cholesterol 49 mg/dl 07/05/22 07:53 Cholesterol/HDL Ratio 3.2 (0-5) 07/05/22 07:53 Lipase 39 U/L (11-82) 07/06/22 08:26 Urine Color Yellow 07/04/22 17:25 Urine Appearance Clear (Clear) 07/04/22 17:25 Urine pH 6.0 (4.5-7.5) 07/04/22 17:25 Ur Specific [place] 1.030 (1.000-1.030) 07/04/22 17:25 Urine Protein 1+ (Negative) H 07/04/22 17:25 Urine Glucose (UA) Trace (Negative) H 07/04/22 17:25 Urine Ketones Trace (Negative) H 07/04/22 17:25 Urine Blood Negative (Negative) 07/04/22 17:25 Urine Nitrite Negative (Negative) 07/04/22 17:25 Urine Bilirubin Negative (Negative) 07/04/22 17:25 Urine Urobilinogen Negative (Negative) 07/04/22 17:25 Ur Leukocyte Esterase Negative (Negative) 07/04/22 17:25 Urine WBC (Auto) 1-5 /hpf (0-5) 07/04/22 17:25 Urine RBC (Auto) 5-10 /hpf (0-4) H 07/04/22 17:25 U Hyaline Cast (Auto) 5-10 /lpf (0-5) H 07/04/22 17:25 U Epithel Cells (Auto) >30 /lpf (0-5) H 07/04/22 17:25 Urine Bacteria (Auto) Negative (Negative) 07/04/22 17:25 Ur Renal Epithelial Cell Not Reportable 07/04/22 17:25 Urine Mucus Present (None Prsent) A 07/04/22 17:25 Ur Butalbital Confirm Cancelled 07/05/22 11:08 Urine Opiates Screen Cancelled 07/05/22 11:08 Urine Opiates Screen Pos (Neg) H 07/05/22 11:08 U Codeine Confrm GC/MS Cancelled 07/05/22 11:08 U Codeine Confrm GC/MS NEGATIVE ng/mL (<50) 07/05/22 11:08 Ur Morphine (GC/MS) 3970 ng/mL (<50) H 07/05/22 11:08 Ur Morphine (GC/MS) Cancelled 07/05/22 11:08 Ur Hydrocodone (GC/MS) Cancelled 07/05/22 11:08 Ur Hydrocodone (GC/MS) NEGATIVE ng/mL (<50) 07/05/22 11:08 Ur Norhydrocodone NEGATIVE ng/mL (<50) 07/05/22 11:08 U Norhydrocodone Conf Cancelled 07/05/22 11:08 Ur Oxycodone Screen Cancelled 07/05/22 11:08 Ur Noroxycodone NEGATIVE ng/mL (<50) 07/05/22 11:08 U Noroxycodone Confirm Cancelled 07/05/22 11:08 Urine Oxycodone (GC/MS) NEGATIVE ng/mL (<50) 07/05/22 11:08 Ur Oxycodone GC/MS Cancelled 07/05/22 11:08 U Oxymorphone GC/MS Cancelled 07/05/22 11:08 U Oxymorphone GC/MS NEGATIVE ng/mL (<50) 07/05/22 11:08 EDDP Confirm Cancelled 07/05/22 11:08 Ur Methadone, Qual Cancelled 07/05/22 11:08 Ur Methadone, Qual Neg (Neg) 07/05/22 11:08 Ur Methadone Cancelled 07/05/22 11:08 Ur Hydromorphone (GC/MS) Cancelled 07/05/22 11:08 Ur Hydromorphone (GC/MS) NEGATIVE ng/mL (<50) 07/05/22 11:08 Urine Barbiturates Cancelled 07/05/22 11:08 Urine Barbiturates Neg (Neg) 07/05/22 11:08 Ur Phencyclidine Scrn Cancelled 07/05/22 11:08 Ur Phencyclidine (PCP) Neg (Neg) 07/05/22 11:08 Urine PCP Confirm Cancelled 07/05/22 11:08 Ur Amphetamines Screen Cancelled 07/05/22 11:08 U Amphetamines Confirm Cancelled 07/05/22 11:08 U Amphetamin/Meth Scrn Neg (Neg) 07/05/22 11:08 Methamphetamine GC/MS Cancelled 07/05/22 11:08 MDMA (Ecstasy) Screen Neg (Neg) 07/05/22 11:08 Ur Amobarbital GC/MS Cancelled 07/05/22 11:08 U Pentobarbital GC/MS Cancelled 07/05/22 11:08 U Phenobarbital GC/MS Cancelled 07/05/22 11:08 U Secobarbital GC/MS Cancelled 07/05/22 11:08 U c-MS-[id number] GC/MS Cancelled 07/05/22 11:08 U Benzodiazepines Scrn Cancelled 07/05/22 11:08 U Benzodiazepines Scrn Neg (Neg) 07/05/22 11:08 U 7-Aminoclonazepam Screen Cancelled 07/05/22 11:08 Ur Nordiazepam GC/MS Cancelled 07/05/22 11:08 U OH-ethylfluraz GC/MS Cancelled 07/05/22 11:08 U Lorazepam Cnf GC/MS Cancelled 07/05/22 11:08 U Oxazepam Confm GC/MS Cancelled 07/05/22 11:08 Ur Temazepam Cnf GC/MS Cancelled 07/05/22 11:08 U a-Hydroxytriaz GC/MS Cancelled 07/05/22 11:08 U f-DU-Ccumnwfmo Cancelled 07/05/22 11:08 Urine Cocaine Cancelled 07/05/22 11:08 Ur Cocaine Metabolite Neg (Neg) 07/05/22 11:08 U Cocaine Metab Confirm Cancelled 07/05/22 11:08 Tetrahydrocannabinol Cancelled 07/05/22 11:08 U Marijuana (THC) Screen Cancelled 07/05/22 11:08 U Marijuana (THC) Screen Pos (Neg) H 07/05/22 11:08 U Marijuana THC Carboxy 2731 ng/mL (<5) H 07/05/22 11:08 Drug Screen Comment Cancelled 07/05/22 11:08 Drug Screen Comment SEE NOTE 07/05/22 11:08 Ethyl Alcohol mg/dL < 10.0 mg/dl (<10.0) 07/05/22 09:56 SARS-CoV-2 (PCR) NEGATIVE (Negative) 07/04/22 15:40 Influenza Type A (PCR) Negative (Neg) 07/04/22 15:40 Influenza Type B (PCR) Negative (Neg) 07/04/22 15:40 RSV (RT-PCR) Negative (Neg) 07/04/22 15:40 Blood Parasites ID Cancelled 07/05/22 07:53 Reference Lab Cancelled 07/05/22 11:08 Impressions Chest X-Ray 07/04/22 14:36 XR chest 1V portable HISTORY: 42 years-old Male Chest pain, nonspecific acute chest pain COMPARISON: None TECHNIQUE: AP view of the chest FINDINGS: Cardiomediastinal and hilar silhouettes are within normal limits. No pneumothorax, pleural effusion, airspace consolidation or pulmonary edema. Bones appear grossly intact. IMPRESSION: No acute process. ACT 112: Negative or not required by law. The above report was generated using voice recognition software. It may contain grammatical, syntax or spelling errors. Electronically signed by: Hank Iverson M.D. 07/04/2022 2:56 PM Abdomen/Pelvis CT 07/04/22 17:39 CT SCAN OF THE ABDOMEN AND PELVIS WITH IV CONTRAST CLINICAL HISTORY: Epigastric abdominal pain COMPARISON STUDY: No priors. TECHNIQUE: Following the IV administration of 90 cc of Optiray 350, CT scan of the abdomen and pelvis is performed from the lung bases to the proximal femora. Images are reviewed in the axial, sagittal, and coronal planes. IV contrast was administered without complication. A dose lowering technique was utilized adhering to the principles of ALARA. CT DOSE: 1218.98 mGy.cm FINDINGS: Lung bases: The heart is normal in size and without pericardial effusion. The lung bases are clear. Liver: The contrast-enhanced liver is enlarged, measuring 21.9 cm in length. Attenuation is slightly diminished suggesting mild steatosis. There is no intrahepatic biliary ductal dilatation. The hepatic veins and portal veins are patent. Gallbladder: Unremarkable. Spleen: Normal in size and attenuation. Pancreas: Scattered parenchymal calcifications suggest chronic pancreatitis. No acute inflammatory change is identified. Adrenal glands: Unremarkable. Kidneys: The contrast enhanced kidneys are normal in size and without hydronephrosis. The kidneys enhance symmetrically. Abdominal vasculature: The abdominal aorta is normal in course and caliber. A stent is present in the left iliac vein. The vessel appears patent. Bowel: There is no bowel obstruction. The appendix is well-visualized and normal. Peritoneum: There is no intraperitoneal free air or abdominal ascites. There is a fat-containing umbilical hernia. Lymphadenopathy: None. Pelvic viscera: The bladder is decompressed and appears circumferentially thick walled. The prostate and seminal vesicles unremarkable as visualized. Skeletal structures: No lytic or blastic lesions are seen. IMPRESSION: 1. The bladder wall appears circumferentially thickened. Correlate with clinical findings and urinalysis. 2. There are scattered pancreatic parenchymal calcifications, suggestive of chronic pancreatitis. There is no evidence of acute inflammation. Clinical and laboratory correlation will be required. 3. The liver is enlarged and mildly steatotic. 4. Additional findings as above. ACT 112: Negative or not required by law. Electronically signed by: Moises Strickland M.D. 07/04/2022 6:12 PM Chest CTA 07/05/22 06:51 CT angio chest dissec wo/w con CLINICAL HISTORY: chest pain severe TECHNIQUE: Multidetector row helical CT of the chest was performed before and after injection of IV contrast. Coronal and sagittal reformations were obtained. Automated dose lowering techniques and/or adjustment according to patient size were utilized for this exam. CT DOSE: 1462.22 mGy.cm Comparison: Comparison is made to CT abdomen pelvis 07/04/2022 FINDINGS: Lungs and pleura: Minimal atelectasis is seen in the lower lungs. No airspace opacity is seen. There is a 4 mm nodule in the left upper lobe (series 4 image 105). Heart and pericardium: Heart size is normal. No pericardial effusion. Vessels: No aortic dissection or intramural hematoma is seen. Mediastinum and merrill: Subcentimeter lymph nodes are seen. Chest wall and lower neck: Unremarkable. Abdomen: A hiatal hernia is seen. Bones: Mild degenerative changes in the thoracic spine. IMPRESSION: 1. No acute abnormality and in particular no evidence of acute aortic injury. 2. 4 mm nodule in the left upper lobe. According to Fleischner criteria, no follow-up is required in low risk patients, in high-risk patients, a 12 month follow-up CT can be optionally performed. ACT 112: Negative or not required by law. Electronically signed by: Mario Hernandez M.D. 07/05/2022 7:55 AM Ordered Studies 07/04/22 17:39 CT Abd and Pelvis [CT abd pelvis IV con only] Stat 07/05/22 06:51 CTA chest dissec wo/w con [CT angio chest dissec wo/w con] Stat Hospital Course (1) Intractable nausea and vomiting: Patient is 42 yr male presents with chest pain. : Cannabis hyperemesis syndrome H/O chronic pancreatitis Potential to overuse pain medications --CT ABD:The bladder wall appears circumferentially thickened. Correlate with clinical findings and urinalysis. There are scattered pancreatic parenchymal calcifications, suggestive of chronic pancreatitis. There is no evidence of acute inflammation. Clinical and laboratory correlation will be required. The liver is enlarged and mildly steatotic. --CT Chest:No acute abnormality and in particular no evidence of acute aortic injury. 4 mm nodule in the left upper lobe. According to Fleischner criteria, no follow-up is required in low risk patients, in high-risk patients, a 12 month follow-up CT can be optionally performed. -- Normal lipase, LFTs --Troponin X3 Negative, 4th .9 --ECHO: Left ventricle wall motion normal. EF 60 to 65%. No significant valvular pathology. 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 Seek immediate medical attention if your symptoms reoccur or worsen Please take all medications as instructed on discharge list below. Please call if you have any questions or problems. You can reach a [facility] hospitalist on duty at [facility] 24 hours a day by calling [phone] Pending Studies at Discharge: No Stand-Alone Forms: My [facility], Smoking Cessation Medications and DC Order Prescriptions: New losartan 50 mg Tablet 50 mg PO BID Qty: 60 1RF Continued ondansetron 4 mg tablet,disintegrating 4 mg PO TID PRN (Reason: Nausea) Eliquis 5 mg tablet 5 mg PO BID Changed pantoprazole 40 mg tablet,delayed release (DR/EC) 40 mg PO BID Qty: 60 0RF Discontinued nifedipine 30 mg tablet extended release 24hr 30 mg PO DAILY Discharge Orders: Discharge Order (Routine); Ordered 07/07/22 Ordered By: Roberto Nails/Other Patient Handouts: Diabetes Blood Glucose Check , Diabetes Food Tips , Diabetes Carbs Fats Protein, ED Diet: Diabetes Admission Data Admit Date/Time: 07/06/22 11:38 Attending Provider: Roberto Moser Admit Provider: Ton Calixto Primary Care Provider: PCP,NO Other Providers: Ton Calixto ; Ena De La Rosa ; Sachin Schultz ; Eh Ha ; Hebert Rothman ; Kal Perry ; Charles Merino ; Jones Gonzales ; Ivy Gooden ; Rhianna Estrada ; Ena Ross ; Moris Rosales ; Cary Bowden ; Dereck Grijalva ; Yoon Hart ; Sydni Seay ; Fauzia Daigle ; Megan Mauro ; Neeraj Singh ; Javon Stephens ; Maria G Norton ; Ivis Live ; Damien Zaragoza. ; Whitney Gandhi ; Gemini Lujan ; Lesley Andre ; Elena Bloom ; Eris Beck ; Brayan Gresham ; Mathieu Marino ; Ena Messer ; Keanu Bourne Jr
== END 2022-07-07 14:59 | disposition home or self-care (01) | DRG 897 ==
LOC: ED 14:03 → 2N 14:03 → SUATTDRO 20:34 → 2N 22:06 → 2W 07-05 17:17